=== PATIENT | male | born 1965 | race African-American/Black ===

== ENCOUNTER → 2016-05-23 | Outpatient (CLI) | payer OTHER ==
[2016-05-23 08:07] LABS: Basophils % (A) 1 %; CH 29.1; Eosinophils # (A) 0.4 k/uL (0-0.7); Eosinophils % (A) 7 %; HCT 42.7 % (39.0-53.0); HDW 2.42; HGB 13.5 gm/dL (13.0-17.5); Luc % (Auto) 3; Lymphocytes % (A) 32 %; MCH 28.9 pg (25.0-35.0); MCHC 31.7 g/dL (31.0-37.0); MCV 91.4 fL (80.0-100.0); Mean Platelet Volume 6.2; Monocytes # (A) 0.4 k/uL (0-1.0); Monocytes % (A) 6 %; Neutrophils # (A) 3.2 k/uL (1.3-7.7); Neutrophils % (A) 51 %; RBC 4.67 m/uL (4.30-5.90); RDW 14.1 % (11.5-15.5); WBC 6.2 k/uL (3.8-10.6); WBC (Perox) 6.12
[2016-05-23 08:22] LABS: ALT 16 U/L (21-72); AST 27 U/L (17-59); Alkaline Phosphatase 61 U/L (38-126); Anion Gap 9 mmol/L; Blood Urea Nitrogen 11 mg/dL (9-20); Calcium 9.3 mg/dL (8.4-10.2); Carbon Dioxide 26 mmol/L (22-30); Chloride 109 mmol/L (98-107); Cholesterol 192 mg/dL (<200); Glucose 119 mg/dL (74-99); HDL Cholesterol 97 mg/dL (40-60); Non-African American GFR(MDRD) >60 (>60 ml/min/1.73 sqM); Potassium 4.1 mmol/L (3.5-5.1); Sodium 144 mmol/L (137-145); Total Bilirubin 0.5 mg/dL (0.2-1.3); Total Protein 7.4 g/dL (6.3-8.2); Triglycerides 96 mg/dL (<150)
[2016-05-23 12:01] LABS: Hemoglobin A1C 6.1 % (4.2-6.1)
== END | disposition home or self-care (01) ==
LOC: LABWHC1 07:34
PROVIDERS: ATTEND Nurse Practitioner Psychiatric/Mental Health
DX: F20.9 Schizophrenia, unspecified (principal)
CPT/HCPCS: 36415; 80053; 80061; 83036; 84439; 84443; 85025

== ENCOUNTER 2017-04-18 08:37 | Emergency (ER) | payer OTHER ==
[2017-04-18 08:42] VITALS: TEMP 98.9
[2017-04-18 09:13] LABS: Appearance,Urine Clear (Clear); Bacteria,Urine Rare /hpf; Bilirubin,Urine Negative (Negative); Blood,Urine Moderate (Negative); Color,Urine Yellow; Glucose,Urine (UA) 4+ (Negative); Ketones,Urine Negative (Negative); Leukocyte Esterase,Urine Negative (Negative); Mucus,Urine Many /hpf; Nitrite,Urine Negative (Negative); PH, Urine 5.5 (5.0-8.0); Protein,Urine Trace (Negative); RBC,Urine 130 /hpf (0-5); Specific Gravity,Urine 1.012 (1.001-1.035); Squamous Epithelial Cell,Urine 1 /hpf (0-4); Urobilinogen,Urine <2.0 mg/dL (<2.0); WBC,Urine 4 /hpf (0-5)
--- NOTE | 2017-04-18 09:14 | ED ---
Male Urogenital HPI - General Chief complaint: Urogenital Stated complaint: Urinating blood Time Seen by Provider: 04/18/17 08:50 Source: patient, RN notes reviewed, old records reviewed Mode of arrival: ambulatory Limitations: no limitations - History of Present Illness Initial comments: This patient is a 51-year-old male presents emergency department reports that he 's had blood in his urine for the past 2 months whenever he wakes up in the morning. He reports that his left testicle is painful. He states that he has had no fever or chills. Denies any back pain or changes in bowel habits. Patient's had no abdominal pain. Denies any previous surgeries or issues with his urinary tract.Patient denies any recent fever, chills, shortness of breath, chest pain, back pain, abdominal pain, nausea vomiting, numbness or tingling, dysuria constipation or diarrhea, headaches or visual changes, or any other current symptoms - Related Data Home Medications Medication Instructions Recorded Confirmed No Known Home Medications [No 04/18/17 04/18/17 Known Home Medications] Allergies Allergy/AdvReac Type Severity Reaction Status Date / Time No Known Allergies Allergy Verified 04/18/17 10:03 Review of Systems ROS Statement: Those systems with pertinent positive or pertinent negative responses have been documented in the HPI. ROS Other: All systems not noted in ROS Statement are negative. Past Medical History Past Medical History: No Reported History History of Any Multi-Drug Resistant Organisms: None Reported Past Surgical History: No Surgical Hx Reported Past Psychological History: Schizophrenia Smoking Status: Current every day smoker Past Alcohol Use History: None Reported Past Drug Use History: None Reported General Exam - General Exam Comments Initial Comments: Patient is a 31-year-old male presents emergency Department with left testicular pain. He appears in no acute distress. Limitations: no limitations General appearance: alert, in no apparent distress Head exam: Present: atraumatic, normocephalic, normal inspection Eye exam: Present: normal appearance, PERRL, EOMI. Absent: scleral icterus, conjunctival injection, periorbital swelling ENT exam: Present: normal exam, mucous membranes moist Neck exam: Present: normal inspection. Absent: tenderness, meningismus, lymphadenopathy Respiratory exam: Present: normal lung sounds bilaterally. Absent: respiratory distress, wheezes, rales, rhonchi, stridor Cardiovascular Exam: Present: regular rate, normal rhythm, normal heart sounds. Absent: systolic murmur, diastolic murmur, rubs, gallop, clicks GI/Abdominal exam: Present: soft, normal bowel sounds. Absent: distended, tenderness, guarding, rebound, rigid exam: Present: normal inspection, testicular tenderness (Left testicular tenderness), other (Hematuria.). Absent: urethral discharge, scrotal swelling, vertical testicular lie, circumcision Extremities exam: Present: normal inspection, full ROM, normal capillary refill. Absent: tenderness, pedal edema, joint swelling, calf tenderness Back exam: Present: normal inspection Neurological exam: Present: alert, oriented X3, CN II-XII intact Psychiatric exam: Present: normal affect, normal mood Skin exam: Present: warm, dry, intact, normal color. Absent: rash Course Vital Signs 04/18/17 04/18/17 04/18/17 08:38 11:09 11:31 Temperature 98.9 F Pulse Rate 106 H 86 88 Respiratory 18 18 20 Rate Blood Pressure 130/87 122/79 127/69 O2 Sat by Pulse 100 100 99 Oximetry 04/18/17 12:45 Temperature Pulse Rate 91 Respiratory 16 Rate Blood Pressure 114/71 O2 Sat by Pulse 98 Oximetry Medical Decision Making - Medical Decision Making 51 year old male with hematuria for 2 months, and left testicular tenderness. Patient has no abdominal, flank or pelvic pain, but is tender over left superior pole of testicle. He does have siginificant hematuria, and glucosuria. Patient was given US scrotum which shows a small cyst in left testicle. No significant findings and repeat in 6 months, patient informed of this. However given significant hematuria, I discussed with Dr. Ramos and suggest CT to rule out bladder and kidney pathology. At this time patient lab work was reviwed and normal. CT shows no renal, ureteral, or bladder abnormalities. I discussed the patient must follow up with urology for possible scope and further work up. Return parameters were discussed. Patient is a smoker and discussed increased risk for bladder cancer as well. - Lab Data Result diagrams: 04/18/17 11:05 04/18/17 11:05 Lab Results 04/18/17 04/18/17 04/18/17 Range/Units 08:55 11:05 11:05 WBC 12.7 H (3.8-10.6) k/uL RBC 4.66 (4.30-5.90) m/uL Hgb 12.9 L (13.0-17.5) gm/dL Hct 40.7 (39.0-53.0) % MCV 87.3 (80.0-100.0) fL MCH 27.7 (25.0-35.0) pg MCHC 31.7 (31.0-37.0) g/dL RDW 14.6 (11.5-15.5) % Plt Count 320 (150-450) k/uL Neutrophils % 80 % Lymphocytes % 12 % Monocytes % 5 % Eosinophils % 1 % Basophils % 0 % Neutrophils # 10.2 H (1.3-7.7) k/uL Lymphocytes # 1.5 (1.0-4.8) k/uL Monocytes # 0.6 (0-1.0) k/uL Eosinophils # 0.2 (0-0.7) k/uL Basophils # 0.1 (0-0.2) k/uL Sodium 143 (137-145) mmol/L Potassium 4.2 (3.5-5.1) mmol/L Chloride 105 (98-107) mmol/L Carbon Dioxide 30 (22-30) mmol/L Anion Gap 8 mmol/L BUN 8 L (9-20) mg/dL Creatinine 1.00 (0.66-1.25) mg/dL Est GFR (MDRD) Af Amer >60 (>60 ml/min/1.73 sqM) Est GFR (MDRD) Non-Af >60 (>60 ml/min/1.73 sqM) Glucose 158 H (74-99) mg/dL Calcium 9.3 (8.4-10.2) mg/dL Total Bilirubin 0.6 (0.2-1.3) mg/dL AST 14 L (17-59) U/L ALT 13 L (21-72) U/L Alkaline Phosphatase 58 (38-126) U/L Total Protein 6.7 (6.3-8.2) g/dL Albumin 3.6 (3.5-5.0) g/dL Amylase 55 (30-110) U/L Lipase 61 (23-300) U/L Urine Color Yellow Urine Appearance Clear (Clear) Urine pH 5.5 (5.0-8.0) Ur Specific [place] 1.012 (1.001-1.035) Urine Protein Trace H (Negative) Urine Glucose (UA) 4+ H (Negative) Urine Ketones Negative (Negative) Urine Blood Moderate H (Negative) Urine Nitrite Negative (Negative) Urine Bilirubin Negative (Negative) Urine Urobilinogen <2.0 (<2.0) mg/dL Ur Leukocyte Esterase Negative (Negative) Urine RBC 130 H (0-5) /hpf Urine WBC 4 (0-5) /hpf Ur Squamous Epith Cells 1 (0-4) /hpf Urine Bacteria Rare H (None) /hpf Urine Mucus Many H (None) /hpf - Radiology Data Radiology results: report reviewed Small lobulated cyst measuring 7 x 5 mm the left testicle is likely incidental or may represent a congenital cyst or spermatocele. 6 month follow-up ultrasound can be considered. CT shows No evidence of hydronephrosis, ureteral caluli or bladder caliculi. No acute intraabomdinal process. Colonic diverticulosis noted. Disposition Clinical Impression: Hematuria Disposition: HOME SELF-CARE Condition: Good Instructions: Hematuria (ED) Additional Instructions: Patient needs to call urology tomorrow morning for an appointment due to persistent hematuria. Return to the emergency department if any alarming signs or symptoms occur. Referrals: None,Stated [Primary Care Provider] - 1-2 days Stuart Jonas MD [STAFF PHYSICIAN] - 1-2 days Time of Disposition: 12:27
--- NOTE | 2017-04-18 10:18 | US ---
EXAMINATION TYPE: US scrotum with doppler. DATE OF EXAM: 04/18/2017 COMPARISON: NONE CLINICAL HISTORY: 51-year-old male Pain in left testicle Technique: Multiple sonographic images of the scrotum were obtained. Color Doppler and spectral wavef orm analysis of the testicular arteries and veins. FINDINGS: TESTICLES: Right Testicle: 4.4x 1.9 x 2.3cm, septated cyst vs two separate cysts measuring 0.5 x 0.3 x 0.7cm Left Testicle: 4.6 x 2.0 x3.0 cm with a nonspecific lobulated cyst measuring 7 x 5 x 3 mm. Otherwise, testicles show normal homogeneous appearance without hyperemia. Satisfactory arterial and venous flow on both sides. EPIDIDYMIS HEAD: Right Epididymis: 0.8 cm Left Epididymis: 0.8 cm Presence of hydroceles: no Presence of varicoceles: no IMPRESSION: 1. A small lobulated cyst measuring 7 x 5 mm in the left testicle is likely incidental and may repres ent a congenital cyst or spermatocele. Six-month follow-up ultrasound could be considered. 2. Otherwise, no specific abnormality seen.
[2017-04-18] MEDS ORDERED: RX INFO: IV CONTRAST WAS GIVEN 1 EACH MISC MISCELLANE PRN (10:49)
[2017-04-18] MEDS ORDERED: SODIUM CHLORIDE 0.9% 1,000 ML IV ONE (10:49)
[2017-04-18] MEDS ORDERED: SODIUM CHLORIDE 0.9% 1,000 ML IV SCH (11:00)
[2017-04-18 11:19] LABS: Basophils # (A) 0.1 k/uL (0-0.2); Basophils % (A) 0 %; Eosinophils # (A) 0.2 k/uL (0-0.7); Eosinophils % (A) 1 %; HCT 40.7 % (39.0-53.0); HGB 12.9 gm/dL (13.0-17.5); Lymphocytes # (A) 1.5 k/uL (1.0-4.8); Lymphocytes % (A) 12 %; MCH 27.7 pg (25.0-35.0); MCHC 31.7 g/dL (31.0-37.0); MCV 87.3 fL (80.0-100.0); Mean Platelet Volume 6.4; Monocytes # (A) 0.6 k/uL (0-1.0); Monocytes % (A) 5 %; Neutrophils # (A) 10.2 k/uL (1.3-7.7); Neutrophils % (A) 80 %; Platelet Count 320 k/uL (150-450); RBC 4.66 m/uL (4.30-5.90); RDW 14.6 % (11.5-15.5); WBC 12.7 k/uL (3.8-10.6)
[2017-04-18 11:44] LABS: ALT 13 U/L (21-72); AST 14 U/L (17-59); Albumin 3.6 g/dL (3.5-5.0); Alkaline Phosphatase 58 U/L (38-126); Amylase 55 U/L (30-110); Anion Gap 8 mmol/L; Blood Urea Nitrogen 8 mg/dL (9-20); Calcium 9.3 mg/dL (8.4-10.2); Carbon Dioxide 30 mmol/L (22-30); Chloride 105 mmol/L (98-107); Glucose 158 mg/dL (74-99); Lipase 61 U/L (23-300); Potassium 4.2 mmol/L (3.5-5.1); Sodium 143 mmol/L (137-145); Total Bilirubin 0.6 mg/dL (0.2-1.3); Total Protein 6.7 g/dL (6.3-8.2)
--- NOTE | 2017-04-18 12:10 | CT ---
EXAMINATION TYPE: CT abdomen pelvis w con DATE OF EXAM: 04/18/2017 COMPARISON: NONE HISTORY: Blood in urine, pain in lower pelvic pain CT DLP: 514.2 mGycm Automated exposure control for dose reduction was used. TECHNIQUE: Helical acquisition of images was performed from the lung bases through the pelvis. CONTRAST: Performed without Oral Contrast and with IV Contrast, patient injected with 100 mL of Omnipaque 300. FINDINGS: LUNG BASES: Bibasilar subsegmental atelectasis is present. LIVER/GB: No radiopaque calculi are seen within the gallbladder. The liver is grossly unremarkable. PANCREAS: No ductal dilatation. Pancreas is unremarkable. SPLEEN: No significant abnormality is seen. Small splenules are noted inferior to the curyung spleen. ADRENALS: No significant abnormality is seen. KIDNEYS: No hydronephrosis or gross evidence of nephrolithiasis is seen. No ureteral calculi are pres ent. FREE AIR: No free air is visualized. ADENOPATHY: No greater than 1 cm short axis with nodes are seen within the abdomen or pelvis. REPRODUCTIVE ORGANS: No significant abnormality is seen URINARY BLADDER: Small urachal remnant is incidentally identified. The bladder is incompletely diste nded and therefore incompletely evaluated however there is no evidence of focal bladder wall thickeni ng or calculus. OSSEOUS STRUCTURES: Minimal multilevel degenerative changes of the lumbosacral spine and visualized thoracic and lumbar spine are noted. BOWEL: Sigmoid colon is redundant containing few sigmoid diverticula without pericolic fat stranding . Few diverticula are also seen within the transverse and descending colon without paracolonic fat st rain. Appendix is air-filled and within normal limits. OTHER: Small fat filled umbilical hernia is noted with a 1.6 cm neck. IMPRESSION: 1. NO EVIDENCE OF HYDRONEPHROSIS, GROSS EVIDENCE OF NEPHROLITHIASIS, URETERAL CALCULI, OR URINARY EMIL DDER CALCULI. 2. NO ACUTE INTRA-ABDOMINAL PROCESS. 3. COLONIC DIVERTICULOSIS WITHOUT EVIDENCE OF DIVERTICULITIS.
[2017-04-18 12:46] VITALS: BP 114/71; PULSE 91; RESP 16
== END 2017-04-18 12:46 | disposition home or self-care (01) ==
LOC: EC 08:37
DX: R31.9 Hematuria, unspecified (principal); K57.30 Diverticulosis of large intestine without perforation or abscess without bleeding; N44.2 Benign cyst of testis; N50.812 Left testicular pain; F17.200 Nicotine dependence, unspecified, uncomplicated
CPT/HCPCS: 36415; 80053; 82150; 83690; 85025; 81001; 93975; 76870; 74177; 99284; 96360; 96361; Q9967

== ENCOUNTER 2017-04-26 11:57 | Emergency (ER) | payer OTHER ==
[2017-04-26 12:01] VITALS: RESP 20
--- NOTE | 2017-04-26 12:35 | ED ---
General Adult HPI - General Chief complaint: Urogenital Stated complaint: Urinating blood Time Seen by Provider: 04/26/17 12:15 Source: patient, RN notes reviewed, Caregiver Mode of arrival: ambulatory Limitations: no limitations - History of Present Illness Initial comments: Patient is a pleasant 51-year-old male presenting to the emergency department with caregiver for hematuria. Patient states it usually happens in the morning. Caregiver states patient was just evaluated for this one week ago. Patient did have some complaints of testicular discomfort earlier however that has resolved. No abdominal pain. No fevers. Patient does state that his left ankle feels somewhat swollen and does hurt to walk on it. Patient does not recall any injury. - Related Data Home Medications Medication Instructions Recorded Confirmed Haloperidol Decanoate [Haldol D] 150 mg IM Q28D 04/26/17 04/26/17 Vivitrol Injection 380 mg IM Q28D 04/26/17 04/26/17 Allergies Allergy/AdvReac Type Severity Reaction Status Date / Time No Known Allergies Allergy Verified 04/26/17 12:30 Review of Systems ROS Statement: Those systems with pertinent positive or pertinent negative responses have been documented in the HPI. ROS Other: All systems not noted in ROS Statement are negative. Constitutional: Denies: fever Eyes: Denies: eye pain ENT: Denies: ear pain Respiratory: Denies: cough, dyspnea Cardiovascular: Denies: chest pain Endocrine: Denies: fatigue Gastrointestinal: Denies: abdominal pain Genitourinary: Reports: hematuria. Denies: dysuria Musculoskeletal: Denies: back pain Skin: Denies: rash Neurological: Denies: headache, weakness Past Medical History Past Medical History: No Reported History History of Any Multi-Drug Resistant Organisms: None Reported Past Surgical History: No Surgical Hx Reported Past Psychological History: Schizophrenia Smoking Status: Current every day smoker Past Alcohol Use History: None Reported Past Drug Use History: None Reported General Exam Limitations: no limitations General appearance: alert, in no apparent distress Head exam: Present: atraumatic Eye exam: Present: normal appearance, PERRL ENT exam: Present: normal oropharynx Neck exam: Present: normal inspection Respiratory exam: Present: normal lung sounds bilaterally Cardiovascular Exam: Present: regular rate, normal rhythm GI/Abdominal exam: Present: soft. Absent: distended, tenderness exam: Present: normal inspection. Absent: testicular tenderness, scrotal swelling Extremities exam: Present: tenderness (Mild tenderness left ankle without significant edema.). Absent: calf tenderness Neurological exam: Present: alert Psychiatric exam: Present: normal affect, normal mood Skin exam: Present: normal color Course Vital Signs 04/26/17 11:59 Temperature 98.1 F Pulse Rate 102 H Respiratory 20 Rate Blood Pressure 154/115 O2 Sat by Pulse 99 Oximetry Medical Decision Making - Medical Decision Making Patient reevaluated and resting comfortably in bed. Patient is symptom-free. Patient does have some hematuria. I do question a small calculi and KUB was could represent possible kidney stone versus fecalith. Tearer is updated regarding this. Patient is advised to follow-up with neurology for further evaluation and to return for fever or worsening symptoms or pain. - Lab Data Lab Results 04/26/17 Range/Units 12:40 Urine Color Yellow Urine Appearance Clear (Clear) Urine pH 5.5 (5.0-8.0) Ur Specific [place] 1.018 (1.001-1.035) Urine Protein Negative (Negative) Urine Glucose (UA) Negative (Negative) Urine Ketones Negative (Negative) Urine Blood Moderate H (Negative) Urine Nitrite Negative (Negative) Urine Bilirubin Negative (Negative) Urine Urobilinogen <2.0 (<2.0) mg/dL Ur Leukocyte Esterase Negative (Negative) Urine RBC 59 H (0-5) /hpf Urine WBC 2 (0-5) /hpf Ur Squamous Epith Cells <1 (0-4) /hpf Urine Bacteria Rare H (None) /hpf Urine Mucus Rare H (None) /hpf - Radiology Data Radiology results: image reviewed (KUB shows some mildly dilated loops of small bowel. Left ankle x-ray shows no acute process.) Disposition Clinical Impression: Hematuria Disposition: HOME SELF-CARE Condition: Stable Instructions: Hematuria (ED) Additional Instructions: Please follow-up with urology in the next few days for recheck. Patient will need further evaluation for blood in the urine. Please follow-up also with primary care physician. Return for increased pain, fevers, worsening symptoms or other concerns. Referrals: Marleny Smith MD [STAFF PHYSICIAN] - 1-2 days Jonathan Lisa MD [STAFF PHYSICIAN] - 1-2 days Time of Disposition: 13:25
[2017-04-26 12:56] LABS: Appearance,Urine Clear (Clear); Bacteria,Urine Rare /hpf; Bilirubin,Urine Negative (Negative); Blood,Urine Moderate (Negative); Color,Urine Yellow; Glucose,Urine (UA) Negative (Negative); Ketones,Urine Negative (Negative); Leukocyte Esterase,Urine Negative (Negative); Mucus,Urine Rare /hpf; PH, Urine 5.5 (5.0-8.0); Protein,Urine Negative (Negative); RBC,Urine 59 /hpf (0-5); Specific Gravity,Urine 1.018 (1.001-1.035); Squamous Epithelial Cell,Urine <1 /hpf (0-4); Urobilinogen,Urine <2.0 mg/dL (<2.0); WBC,Urine 2 /hpf (0-5)
--- NOTE | 2017-04-26 13:18 | XR ---
EXAMINATION TYPE: XR abdomen 1V DATE OF EXAM: 04/26/2017 12:53 PM CLINICAL HISTORY: Hematemesis TECHNIQUE: Single upright image of the abdomen is obtained. COMPARISON: 04/18/2017. FINDINGS: Scattered gas is seen in non-distended small bowel loops. Few mildly enlarged bowel loops a re seen in the low pelvis measuring 4.5 cm. Gas and fecal material is seen in non-distended colon. Mo derate amount retained colonic stool is seen within the right hemicolon and transverse colon. There i s no pneumoperitoneum or abnormal calcification appreciated. The lung bases are clear and the osseous structures are intact with mild degenerative changes of the femoral acetabular joint. IMPRESSION: Few mildly dilated loops of small bowel suggestive of ileus and moderate amount retained colonic stool.
--- NOTE | 2017-04-26 13:24 | XR ---
Left ankle HISTORY: Left ankle pain and swelling 3 views of the left ankle No comparisons There is soft tissue swelling. Bone mineralization, joint spaces and alignment are maintained. Calcif ication present at the insertion of the Achilles tendon. Some spurring present at the intertarsal bjorn nts. IMPRESSION: No fracture or dislocation. Mild osteoarthritic change is suspected. Consider ankle MRI.
[2017-04-26 13:36] VITALS: BP 150/98; PULSE 100; TEMP 98
== END 2017-04-26 13:35 | disposition home or self-care (01) ==
LOC: EC 11:57
DX: R31.9 Hematuria, unspecified (principal); N50.819 Testicular pain, unspecified; F20.9 Schizophrenia, unspecified; F17.200 Nicotine dependence, unspecified, uncomplicated; Z79.899 Other long term (current) drug therapy
CPT/HCPCS: 74018; 81001; 87086; 99283

== ENCOUNTER 2018-08-23 14:22 | Emergency (ER) | payer OTHER ==
[2018-08-23 14:29] VITALS: TEMP 98.5
[2018-08-23] MEDS ORDERED: SODIUM CHLORIDE 0.9% 1,000 ML IV ONE (14:57)
[2018-08-23] MEDS ORDERED: PANTOPRAZOLE 40 MG/10 ML VIAL IVP STA (15:45)
[2018-08-23] MEDS ORDERED: SODIUM CHLORIDE 0.9% 1,000 ML with POTASSIUM CHLORIDE 20 MEQ, MVI, ADULT NO.4 WITH VIT ... IV ONE ×5 (15:45)
[2018-08-23 15:53] LABS: Basophils % (A) 1 %; Eosinophils # (A) 0.1 k/uL (0-0.7); Eosinophils % (A) 2 %; HCT 40.9 % (39.0-53.0); HGB 12.8 gm/dL (13.0-17.5); Lymphocytes # (A) 1.7 k/uL (1.0-4.8); Lymphocytes % (A) 32 %; MCH 27.9 pg (25.0-35.0); MCHC 31.2 g/dL (31.0-37.0); MCV 89.3 fL (80.0-100.0); Mean Platelet Volume 6.9; Monocytes # (A) 0.3 k/uL (0-1.0); Monocytes % (A) 5 %; Neutrophils # (A) 3.1 k/uL (1.3-7.7); Neutrophils % (A) 57 %; Platelet Count 183 k/uL (150-450); RBC 4.58 m/uL (4.30-5.90); RDW 15.2 % (11.5-15.5); WBC 5.4 k/uL (3.8-10.6)
[2018-08-23 15:58] LABS: ALT 12 U/L (21-72); AST 19 U/L (17-59); African American GFR (CKD) >90 (>60 ml/min/1.73 sqM); Alkaline Phosphatase 49 U/L (38-126); Anion Gap 8 mmol/L; Blood Urea Nitrogen 10 mg/dL (9-20); Carbon Dioxide 25 mmol/L (22-30); Chloride 109 mmol/L (98-107); Glucose 88 mg/dL (74-99); Potassium 3.7 mmol/L (3.5-5.1); Sodium 142 mmol/L (137-145); Total Bilirubin 0.8 mg/dL (0.2-1.3); Total Protein 6.7 g/dL (6.3-8.2)
[2018-08-23 16:06] LABS: Partial Thromboplastin Time 24.5 sec (22.0-30.0); Prothrombin Time 10.8 sec (9.0-12.0)
[2018-08-23 16:09] LABS: Alcohol 237 mg/dL
--- NOTE | 2018-08-23 16:13 | ED ---
Fall HPI <Champ Holley - Last Filed: 08/23/18 20:56> - General Source: EMS, RN notes reviewed, old records reviewed Mode of arrival: EMS <Mery Syed - Last Filed: 08/23/18 20:58> <Yoav Gordillo - Last Filed: 08/23/18 23:48> - General Chief Complaint: Fall Stated Complaint: Fall Time Seen by Provider: 08/23/18 14:30 - History of Present Illness Initial Comments: Patient is a 52-year-old male history of alcohol disorder, as well and speech delay, presents today after a fall and concern for intoxication. According to EMS they were called to [facility] due to patient being unruly. Patient then left to the senior living. Palate Patient trying to get on a bus, and fell backward possibly hitting his head. EMS was not called second time and palpation in for evaluation. Patient states he was drinking today. He reports he has pain all over. He denies loss of consciousness. (Mery Syed) - Related Data Home Medications Medication Instructions Recorded Confirmed No Known Home Medications 08/23/18 08/23/18 Allergies Allergy/AdvReac Type Severity Reaction Status Date / Time No Known Allergies Allergy Verified 08/23/18 14:55 Review of Systems ROS Other: All systems not noted in ROS Statement are negative. <Champ Holley - Last Filed: 08/23/18 20:56> ROS Other: All systems not noted in ROS Statement are negative. <Mery Syed - Last Filed: 08/23/18 20:58> ROS Other: All systems not noted in ROS Statement are negative. <Yoav Gordillo - Last Filed: 08/23/18 23:48> ROS Statement: Those systems with pertinent positive or pertinent negative responses have been documented in the HPI. Past Medical History Past Medical History: No Reported History History of Any Multi-Drug Resistant Organisms: None Reported Past Surgical History: No Surgical Hx Reported Past Psychological History: Schizophrenia Smoking Status: Current every day smoker Past Alcohol Use History: None Reported Past Drug Use History: None Reported <Mery Syed - Last Filed: 08/23/18 20:58> General Exam Limitations: altered mental status General appearance: alert, appears intoxicated (Unintelligible speech.), other (Vila is speaking and slurred sentences, saying swear words. Appears to be responding to internal stimuli.) Head exam: Present: atraumatic, normocephalic, normal inspection Eye exam: Present: normal appearance, PERRL, EOMI. Absent: scleral icterus, conjunctival injection, periorbital swelling ENT exam: Present: normal exam, mucous membranes moist Neck exam: Present: normal inspection. Absent: tenderness, meningismus, lymphadenopathy Respiratory exam: Present: normal lung sounds bilaterally. Absent: respiratory distress, wheezes, rales, rhonchi, stridor Cardiovascular Exam: Present: regular rate, normal rhythm, normal heart sounds. Absent: systolic murmur, diastolic murmur, rubs, gallop, clicks GI/Abdominal exam: Present: soft, normal bowel sounds. Absent: distended, tend erness, guarding, rebound, rigid Extremities exam: Present: normal inspection, full ROM, normal capillary refill. Absent: tenderness, pedal edema, joint swelling, calf tenderness Back exam: Present: normal inspection Neurological exam: Present: alert, oriented X3, CN II-XII intact <Mery Syed - Last Filed: 08/23/18 20:58> - General Exam Comments Initial Comments: Intoxicated 52-year-old male. (Mery Syed) Course <Champ Holley - Last Filed: 08/23/18 20:56> Vital Signs 08/23/18 08/23/18 14:24 17:18 Temperature 98.5 F Pulse Rate 82 77 Respiratory 18 18 Rate Blood Pressure 125/90 130/103 O2 Sat by Pulse 97 98 Oximetry - Reevaluation(s) Reevaluation #1: 08/23/18 19:24 Patient became verbally and physically threatening and did require some IV sedation. He still remains intoxicated at this time. (Champ Holley) Reevaluation #2: 08/23/18 20:56 Patient is resting comfortably since medication was given. Patient's care will be endorsed to Dr. Gordillo at our shift change (Champ Holley) Medical Decision Making - Lab Data Result diagrams: 08/23/18 15:22 08/23/18 15:22 <Champ Holley - Last Filed: 08/23/18 20:56> - Lab Data Result diagrams: 08/23/18 15:22 08/23/18 15:22 - Radiology Data Radiology results: report reviewed <Mery Syed - Last Filed: 08/23/18 20:58> - Lab Data Result diagrams: 08/23/18 15:22 08/23/18 15:22 <Yoav Gordillo - Last Filed: 08/23/18 23:48> - Medical Decision Making Is a 32-year-old male with history of schizophrenia and alcohol use disorder. He presents today after a fall getting out of bus. He may have hit his head. Patient appears intoxicated, slurred speech is noted. They also report he has a history of speech impediment states that this is unchanged. Patient had a CT of his brain which is negative for any acute process. Lab work was reviewed and unremarkable. Alcohol level is 237. Case discussed with Dr. Holley who will reevaluate the Patient needs more sober determined Patient will need to be evaluated by psychiatric services. (Mery Syed) - Lab Data Lab Results 08/23/18 08/23/18 08/23/18 Range/Units 15:22 15:22 15:22 WBC 5.4 (3.8-10.6) k/uL RBC 4.58 (4.30-5.90) m/uL Hgb 12.8 L (13.0-17.5) gm/dL Hct 40.9 (39.0-53.0) % MCV 89.3 (80.0-100.0) fL MCH 27.9 (25.0-35.0) pg MCHC 31.2 (31.0-37.0) g/dL RDW 15.2 (11.5-15.5) % Plt Count 183 (150-450) k/uL Neutrophils % 57 % Lymphocytes % 32 % Monocytes % 5 % Eosinophils % 2 % Basophils % 1 % Neutrophils # 3.1 (1.3-7.7) k/uL Lymphocytes # 1.7 (1.0-4.8) k/uL Monocytes # 0.3 (0-1.0) k/uL Eosinophils # 0.1 (0-0.7) k/uL Basophils # 0.0 (0-0.2) k/uL PT 10.8 (9.0-12.0) sec INR 1.0 (<1.2) APTT 24.5 (22.0-30.0) sec Sodium 142 (137-145) mmol/L Potassium 3.7 (3.5-5.1) mmol/L Chloride 109 H (98-107) mmol/L Carbon Dioxide 25 (22-30) mmol/L Anion Gap 8 mmol/L BUN 10 (9-20) mg/dL Creatinine 0.99 (0.66-1.25) mg/dL Est GFR (CKD-EPI)AfAm >90 (>60 ml/min/1.73 sqM) Est GFR (CKD-EPI)NonAf 87 (>60 ml/min/1.73 sqM) Glucose 88 (74-99) mg/dL Calcium 9.0 (8.4-10.2) mg/dL Total Bilirubin 0.8 (0.2-1.3) mg/dL AST 19 (17-59) U/L ALT 12 L (21-72) U/L Alkaline Phosphatase 49 (38-126) U/L Troponin I (0.000-0.034) ng/mL Total Protein 6.7 (6.3-8.2) g/dL Albumin 4.0 (3.5-5.0) g/dL Urine Opiates Screen (NotDetected) Ur Oxycodone Screen (NotDetected) Urine Methadone Screen (NotDetected) Ur Propoxyphene Screen (NotDetected) Ur Barbiturates Screen (NotDetected) U Tricyclic Antidepress (NotDetected) Ur Phencyclidine Scrn (NotDetected) Ur Amphetamines Screen (NotDetected) U Methamphetamines Scrn (NotDetected) U Benzodiazepines Scrn (NotDetected) Urine Cocaine Screen (NotDetected) U Marijuana (THC) Screen (NotDetected) Serum Alcohol 237 H* mg/dL 08/23/18 08/23/18 Range/Units 15:22 16:08 WBC (3.8-10.6) k/uL RBC (4.30-5.90) m/uL Hgb (13.0-17.5) gm/dL Hct (39.0-53.0) % MCV (80.0-100.0) fL MCH (25.0-35.0) pg MCHC (31.0-37.0) g/dL RDW (11.5-15.5) % Plt Count (150-450) k/uL Neutrophils % % Lymphocytes % % Monocytes % % Eosinophils % % Basophils % % Neutrophils # (1.3-7.7) k/uL Lymphocytes # (1.0-4.8) k/uL Monocytes # (0-1.0) k/uL Eosinophils # (0-0.7) k/uL Basophils # (0-0.2) k/uL PT (9.0-12.0) sec INR (<1.2) APTT (22.0-30.0) sec Sodium (137-145) mmol/L Potassium (3.5-5.1) mmol/L Chloride (98-107) mmol/L Carbon Dioxide (22-30) mmol/L Anion Gap mmol/L BUN (9-20) mg/dL Creatinine (0.66-1.25) mg/dL Est GFR (CKD-EPI)AfAm (>60 ml/min/1.73 sqM) Est GFR (CKD-EPI)NonAf (>60 ml/min/1.73 sqM) Glucose (74-99) mg/dL Calcium (8.4-10.2) mg/dL Total Bilirubin (0.2-1.3) mg/dL AST (17-59) U/L ALT (21-72) U/L Alkaline Phosphatase (38-126) U/L Troponin I <0.012 (0.000-0.034) ng/mL Total Protein (6.3-8.2) g/dL Albumin (3.5-5.0) g/dL Urine Opiates Screen Not Detected (NotDetected) Ur Oxycodone Screen Not Detected (NotDetected) Urine Methadone Screen Not Detected (NotDetected) Ur Propoxyphene Screen Not Detected (NotDetected) Ur Barbiturates Screen Not Detected (NotDetected) U Tricyclic Antidepress Not Detected (NotDetected) Ur Phencyclidine Scrn Not Detected (NotDetected) Ur Amphetamines Screen Not Detected (NotDetected) U Methamphetamines Scrn Not Detected (NotDetected) U Benzodiazepines Scrn Not Detected (NotDetected) Urine Cocaine Screen Detected H (NotDetected) U Marijuana (THC) Screen Not Detected (NotDetected) Serum Alcohol mg/dL - Radiology Data CT shows cerebral atrophy. No acute intracranial abnormality. Splondylotic changes in cervical spine. (Mery Syed) Disposition <Champ Holley - Last Filed: 08/23/18 20:56> Is patient prescribed a controlled substance at d/c from ED?: No Time of Disposition: 17:48 <Mery Syed - Last Filed: 08/23/18 20:58> Is patient prescribed a controlled substance at d/c from ED?: No <Yoav Gordillo - Last Filed: 08/23/18 23:48> Clinical Impression: Alcohol abuse, Intoxication Disposition: HOME SELF-CARE Condition: Good Instructions (If sedation given, give patient instructions): Alcohol Intoxication (ED) Referrals: Marleny Smith MD [Primary Care Provider] - 1-2 days
[2018-08-23 17:00] LABS: Amphetamine Screen,Urine Not Detected (NotDetected); Barbiturate Screen,Urine Not Detected (NotDetected); Benzodiazepines Screen,Urine Not Detected (NotDetected); Cocaine Screen,Urine Detected (NotDetected); Methadone Screen, Urine Not Detected (NotDetected); Opiate Screen,Urine Not Detected (NotDetected); Oxycodone Screen, Urine Not Detected (NotDetected); Phencyclidine Screen,Urine Not Detected (NotDetected); Tricyclic Antidepressant,Urine Not Detected (NotDetected); Urn Cannabinoid Scrn Not Detected (NotDetected)
--- NOTE | 2018-08-23 17:02 | XR ---
EXAMINATION TYPE: XR chest 2V DATE OF EXAM: 08/23/2018 COMPARISON: 01/11/2013 HISTORY: Fall. Pain. TECHNIQUE: Frontal and lateral views of the chest are obtained. FINDINGS: Heart and mediastinum are normal. Lungs are clear. Diaphragm is normal. Bony thorax appear s normal. IMPRESSION: Normal chest. No change.
--- NOTE | 2018-08-23 17:11 | CT ---
EXAMINATION TYPE: CT brain [place] DATE OF EXAM: 08/23/2018 COMPARISON: None HISTORY: ETOH, fall, slurred speech. Headache. Neck pain CT DLP: 2384 mGycm Automated exposure control for dose reduction was used. TECHNIQUE: CT scan of the head and cervical spine are performed without contrast. FINDINGS: There is cerebral cortical atrophy. There is no mass effect nor midline shift. There is n o sign of intracranial hemorrhage. There is some mucosal thickening in the ethmoid air cells. Calvari um is intact. Cervical vertebra have normal alignment. There is degenerative disc space narrowing and spur formatio n from C3 to C7. Facet joints are intact. The skull base is intact. IMPRESSION: Cerebral atrophy. No acute intracranial abnormality. Spondylotic changes in the cervical spine. No fr acture.
[2018-08-23] MEDS ORDERED: LORazepam 2 MG/ML INJ IV STA ×2 (19:21→19:22)
[2018-08-24 02:04] VITALS: BP 135/94; PULSE 70; RESP 16
== END 2018-08-24 02:04 | disposition home or self-care (01) ==
LOC: EC 14:22
DX: F10.129 Alcohol abuse with intoxication, unspecified (principal); R47.81 Slurred speech; F17.200 Nicotine dependence, unspecified, uncomplicated
CPT/HCPCS: 36415; 93005; 80053; 84484; 85025; 85610; 85730; 80306; 71046; 72125; 70450; 99285; 96365; 96366 ×8; 96375 ×2; 96361; G0480; J2060; J3411; J3480; C9113; 80320

== ENCOUNTER 2018-08-29 14:24 | Inpatient (IN) | payer MEDICAID, OTHER ==
[2018-08-29] MEDS ORDERED: diphenhydrAMINE 50 MG/ML 1 ML VIAL IM STA (14:37)
[2018-08-29] MEDS ORDERED: LORazepam 2 MG/ML INJ IM STA (14:37)
--- NOTE | 2018-08-29 15:09 | ED ---
Psych HPI - General Source: EMS, RN notes reviewed, old records reviewed Mode of arrival: EMS - History of Present Illness MD Complaint: altered mental status -: unknown Associated Psychiatric Symptoms: homicidal ideation, racing thoughts, auditory hallucinations, visual hallucinations, delusions Quality: getting worse Improves With: none Worsens With: none Context: not taking psychiatric medications Associated Symptoms: denies other symptoms Treatments Prior to Arrival: placed on mental health hold <Otto Meléndez - Last Filed: 08/29/18 16:07> <Champ Holley - Last Filed: 08/29/18 19:20> - General Chief Complaint: Psychiatric Symptoms Stated Complaint: EPS eval Time Seen by Provider: 08/29/18 14:32 - History of Present Illness Initial Comments: This is a 52-year-old male the ER for evaluation presents today for evaluation regards to psychiatric illness, presented cor pickup order for evaluation regarding schizophrenia and psychosis (Otto Meléndez) - Related Data Home Medications Medication Instructions Recorded Confirmed Haloperidol Decanoate [Haldol D] 150 mg IM QMONTH 08/29/18 08/29/18 Allergies Allergy/AdvReac Type Severity Reaction Status Date / Time No Known Allergies Allergy Verified 08/29/18 14:38 Review of Systems ROS Other: All systems not noted in ROS Statement are negative. <Otto Meléndez - Last Filed: 08/29/18 16:07> ROS Other: All systems not noted in ROS Statement are negative. <Champ Holley - Last Filed: 08/29/18 19:20> ROS Statement: Those systems with pertinent positive or pertinent negative responses have been documented in the HPI. Past Medical History Past Medical History: No Reported History History of Any Multi-Drug Resistant Organisms: None Reported Past Surgical History: No Surgical Hx Reported Past Psychological History: Schizophrenia Smoking Status: Current every day smoker Past Alcohol Use History: None Reported Past Drug Use History: None Reported <Otto Meléndez - Last Filed: 08/29/18 16:07> General Exam Limitations: no limitations General appearance: alert, in no apparent distress Head exam: Present: atraumatic, normocephalic, normal inspection Eye exam: Present: normal appearance, PERRL, EOMI. Absent: scleral icterus, conjunctival injection, periorbital swelling ENT exam: Present: normal exam, mucous membranes moist Neck exam: Present: normal inspection. Absent: tenderness, meningismus, lymphadenopathy Respiratory exam: Present: normal lung sounds bilaterally. Absent: respiratory distress, wheezes, rales, rhonchi, stridor Cardiovascular Exam: Present: regular rate, normal rhythm, normal heart sounds. Absent: systolic murmur, diastolic murmur, rubs, gallop, clicks GI/Abdominal exam: Present: soft, normal bowel sounds. Absent: distended, tenderness, guarding, rebound, rigid Extremities exam: Present: normal inspection, full ROM, normal capillary refill. Absent: tenderness, pedal edema, joint swelling, calf tenderness Back exam: Present: normal inspection Neurological exam: Present: alert, oriented X3, CN II-XII intact Psychiatric exam: Present: normal affect, normal mood Skin exam: Present: warm, dry, intact, normal color. Absent: rash <Otto Meléndez - Last Filed: 08/29/18 16:07> Course <Otto Meléndez - Last Filed: 08/29/18 16:07> Vital Signs 08/29/18 08/29/18 14:26 18:36 Temperature 97.5 F L 98 F Pulse Rate 87 61 Respiratory 18 19 Rate Blood Pressure 167/120 117/76 O2 Sat by Pulse 99 100 Oximetry - Reevaluation(s) Reevaluation #1: 08/29/18 16:08 Medically clear for psychiatric evaluation (Otto Meléndez) Reevaluation #2: 08/29/18 16:08 On arrival to ER patient was very combative requiring chemical and physical restraints (Otto Meléndez) Procedures - Restraint - Face to Face Restraint Occurrence 1 Patient's Immediate Situation: Endangers self safety, Endangers others' safety, Endangers staff safety Patient's Reaction to the Intervention: Uncooperative, Angry, Hostile, Anxious Patient's Medical & Behavioral Condition: Awake, Agitated, Paranoid Need to Continue or Terminate Restraint or Seclusion: Continue Face to Face Eval of Restraint Date: 08/29/18 Face to Face Eval of Restraint Time: 14:50 <Otto Meléndez - Last Filed: 08/29/18 16:07> Medical Decision Making - Lab Data Result diagrams: 08/29/18 15:06 08/29/18 15:06 <Champ Holley - Last Filed: 08/29/18 19:20> - Medical Decision Making Patient was endorsed me by Dr. Meléndez at shift change pending psychiatric evaluation the patient was evaluated and will be admitted for inpatient treatment of schizophrenia. I did review the pickup order and petitioned I did fill out a clinical certification. (Champ Holley) - Lab Data Lab Results 08/29/18 08/29/18 08/29/18 Range/Units 15:06 15:06 15:06 WBC 3.7 L (3.8-10.6) k/uL RBC 4.52 (4.30-5.90) m/uL Hgb 13.0 (13.0-17.5) gm/dL Hct 40.8 (39.0-53.0) % MCV 90.3 (80.0-100.0) fL MCH 28.9 (25.0-35.0) pg MCHC 31.9 (31.0-37.0) g/dL RDW 16.7 H (11.5-15.5) % Plt Count 186 (150-450) k/uL Neutrophils % 60 % Lymphocytes % 29 % Monocytes % 5 % Eosinophils % 4 % Basophils % 1 % Neutrophils # 2.2 (1.3-7.7) k/uL Lymphocytes # 1.1 (1.0-4.8) k/uL Monocytes # 0.2 (0-1.0) k/uL Eosinophils # 0.1 (0-0.7) k/uL Basophils # 0.0 (0-0.2) k/uL Anisocytosis Slight Sodium 139 (137-145) mmol/L Potassium 4.0 (3.5-5.1) mmol/L Chloride 105 (98-107) mmol/L Carbon Dioxide 30 (22-30) mmol/L Anion Gap 4 mmol/L BUN 9 (9-20) mg/dL Creatinine 0.85 (0.66-1.25) mg/dL Est GFR (CKD-EPI)AfAm >90 (>60 ml/min/1.73 sqM) Est GFR (CKD-EPI)NonAf >90 (>60 ml/min/1.73 sqM) Glucose 118 H (74-99) mg/dL Calcium 9.3 (8.4-10.2) mg/dL Total Bilirubin 1.2 (0.2-1.3) mg/dL AST 26 (17-59) U/L ALT 18 L (21-72) U/L Alkaline Phosphatase 42 (38-126) U/L Total Protein 6.5 (6.3-8.2) g/dL Albumin 3.9 (3.5-5.0) g/dL Urine Opiates Screen Not Detected (NotDetected) Ur Oxycodone Screen Not Detected (NotDetected) Urine Methadone Screen Not Detected (NotDetected) Ur Propoxyphene Screen Not Detected (NotDetected) Ur Barbiturates Screen Not Detected (NotDetected) U Tricyclic Antidepress Not Detected (NotDetected) Ur Phencyclidine Scrn Not Detected (NotDetected) Ur Amphetamines Screen Not Detected (NotDetected) U Methamphetamines Scrn Not Detected (NotDetected) U Benzodiazepines Scrn Not Detected (NotDetected) Urine Cocaine Screen Not Detected (NotDetected) U Marijuana (THC) Screen Not Detected (NotDetected) Serum Alcohol <10 mg/dL Disposition <Otto Meléndez - Last Filed: 08/29/18 16:07> <Champ Holley - Last Filed: 08/29/18 19:20> Clinical Impression: Schizophrenia, acute Disposition: TRANSFER TO PSYCH HOSP/UNIT Condition: Stable
[2018-08-29 16:24] LABS: Anisocytosis Slight; Basophils % (A) 1 %; Eosinophils # (A) 0.1 k/uL (0-0.7); Eosinophils % (A) 4 %; HCT 40.8 % (39.0-53.0); Lymphocytes # (A) 1.1 k/uL (1.0-4.8); Lymphocytes % (A) 29 %; MCH 28.9 pg (25.0-35.0); MCHC 31.9 g/dL (31.0-37.0); MCV 90.3 fL (80.0-100.0); Mean Platelet Volume 7.6; Monocytes # (A) 0.2 k/uL (0-1.0); Monocytes % (A) 5 %; Neutrophils # (A) 2.2 k/uL (1.3-7.7); Neutrophils % (A) 60 %; Platelet Count 186 k/uL (150-450); RBC 4.52 m/uL (4.30-5.90); RDW 16.7 % (11.5-15.5); WBC 3.7 k/uL (3.8-10.6)
[2018-08-29 16:34] LABS: ALT 18 U/L (21-72); AST 26 U/L (17-59); African American GFR (CKD) >90 (>60 ml/min/1.73 sqM); Albumin 3.9 g/dL (3.5-5.0); Alcohol <10 mg/dL; Alkaline Phosphatase 42 U/L (38-126); Anion Gap 4 mmol/L; Blood Urea Nitrogen 9 mg/dL (9-20); Calcium 9.3 mg/dL (8.4-10.2); Carbon Dioxide 30 mmol/L (22-30); Chloride 105 mmol/L (98-107); Glucose 118 mg/dL (74-99); Sodium 139 mmol/L (137-145); Total Bilirubin 1.2 mg/dL (0.2-1.3); Total Protein 6.5 g/dL (6.3-8.2)
[2018-08-29 16:37] LABS: Amphetamine Screen,Urine Not Detected (NotDetected); Barbiturate Screen,Urine Not Detected (NotDetected); Benzodiazepines Screen,Urine Not Detected (NotDetected); Cocaine Screen,Urine Not Detected (NotDetected); Methadone Screen, Urine Not Detected (NotDetected); Opiate Screen,Urine Not Detected (NotDetected); Oxycodone Screen, Urine Not Detected (NotDetected); Phencyclidine Screen,Urine Not Detected (NotDetected); Tricyclic Antidepressant,Urine Not Detected (NotDetected); Urn Cannabinoid Scrn Not Detected (NotDetected)
[2018-08-29] MEDS ORDERED: ACETAMINOPHEN TAB 325 MG TAB PO PRN (18:35)
[2018-08-29] MEDS ORDERED: LORazepam 1 MG TAB PO PRN (18:35)
[2018-08-29] MEDS ORDERED: MAG HYDROX/AL HYDROX/SIMETH 30 ML CUP PO PRN (18:35)
[2018-08-29] MEDS ORDERED: MAGNESIUM HYDROXIDE 2,400 MG/10 ML CUP PO PRN (18:35)
[2018-08-29] MEDS ORDERED: ZIPRASIDONE 20 MG VIAL IM PRN (18:35)
[2018-08-29 19:46] LABS: Appearance,Urine Clear (Clear); Bilirubin,Urine Negative (Negative); Blood,Urine Negative (Negative); Color,Urine Yellow; Glucose,Urine (UA) Negative (Negative); Ketones,Urine Negative (Negative); Leukocyte Esterase,Urine Negative (Negative); Nitrite,Urine Negative (Negative); PH, Urine 7.5 (5.0-8.0); Protein,Urine Negative (Negative); Specific Gravity,Urine 1.009 (1.001-1.035); Urobilinogen,Urine <2.0 mg/dL (<2.0)
[2018-08-30] MEDS: NICOTINE 14MG/24HR PATCH TRANSDERM SCH (08:09)
[2018-08-30] MEDS: THIAMINE 100 MG TAB PO SCH ×2 (12:23→15:14)
--- NOTE | 2018-08-30 12:49 | HP ---
DATE OF SERVICE: 08/30/2018 HISTORY AND PHYSICAL IDENTIFYING DATA: The patient is a 52-year-old male. He has been living at [facility]. He was admitted on a pick-up order for involuntary hospitalization. CHIEF COMPLAINT: The patient was hopeless. He threatened to harm himself and harm others. HISTORY PRESENTING ILLNESS: The patient has been diagnosed with schizophrenia. He was followed through [facility]. He [place] different [place]. He had a psychiatric evaluation at [facility] 03/24/2018. At that time, he was noted to have a hospitalization for extreme agitation, threatening others, hallucinations and paranoia. He has had a history of psychiatric difficulties going back to mid teens when he was noted to have hallucinations and paranoid delusions. The following is noted on his 2017 evaluation, "He is reported to struggle with disorganized thought, loose association, tangential thoughts, pressured speech, disconnect it seems, presents as preoccupied with relationship and sexual issues, varying affect labile mood, hearing voices, but typically does not express the content and mumbling to himself. In the past, when admitted to [facility], he was reported he struggled with irrational behavior, yelling and threatening. [place] [address] by himself. He is confused, labile mood. He was placed in four-point restraints due to threatening irrational behaviors." He was last seen at [facility], 02/15/2018, and had been followed by Miss Daniella KAMARA at that contact, it was noted that he was on Haldol Decanoate 150 mg IM every 4 weeks. He had been on Cogentin, though had stopped taking the medication because it made his mouth too dry. He did not report any EPS symptoms. His mood was even. He was reporting to function fairly well. He was reporting using alcohol and marijuana intermittently. He apparently has been followed since the February 15 appointment through [facility]. It is noted that he had ED visits in March for urinary complaints. He was also seen in the ED 08/23/2018 for a fall and concern for intoxication. He had been at [facility] and apparently had unruly behavior as his reason for coming to the ED. He was drinking on the . At the emergency department, his serum alcohol level was 237. The rest of his drug screen was negative. In regards to his current admission, patient was petition by a friend. Please see the legal documents for details. It was noted on the petition the following "While driving today. I seen sitting on the curb of [facility] and [place] waiting to get into the soup kitchen. stated to me that he did not care if he lived or . then said he was going to walk down the freeway and did not care what happened. further stated that he was going to "get that man" (would not identify the man or go into details) and throw him in the river. When I asked about seeking help, he refused to go to the hospital and "was not going to deal with the hospital or police." He also stated he did not want to go on any medications." When I talked to the patient today, he declined to provide any information. He said that he needed a vitamin. Relating to his alcohol use, he did not provide any details about his alcohol use other than acknowledging that he drinks apparently fairly regularly. He said he also smokes marijuana, though again did not provide details. When I reviewed information on the petition, the patient declined to say anything about what was documented. He said that his only reason for being in the hospital was to get on a vitamin and then to be discharged. It is noteworthy that in the emergency room, his urine drug screen was negative and blood alcohol level was 0. He is admitted for further evaluation. SUBSTANCE USE HISTORY: As above. PAST MEDICAL HISTORY: As per medical consultation. FAMILY AND SOCIAL HISTORY: Patient did not provide any information. He apparently continues to reside at [facility]. He made reference of going to [place], but his thoughts were disorganized and was hard to be clear what he was indicating. PHYSICAL EXAM: As per medical consultation. MENTAL STATUS EXAM: When I saw the patient initially, he said he refused to talk to me. He would only talk to a "doctor." He that he wanted see my badge. He had a somewhat angry intense manner at that point. When I showed him by my hospital identification, he walked quietly into the room. He pulled the chair up very close to my chair. When I opened the chart in the computer, he turn the screen towards him so he could read what was on the screen. He answered a few questions. Mostly he just made statements that he was not looking for any psychiatric help that he only needed to be on "a vitamin." His affect was somewhat intense. He was more intense when he was in the [place]. When he talked to me in the room, he had a more reserved manner. His mood was dysphoric. It was difficult to assess how distressed he might be. There was no outward evidence of his responding to internal stimuli. He did make an effort to answer formal cognitive questions. He appeared to be fairly well aware of his circumstances. ASSESSMENT: This 52-year-old male is diagnosed with schizophrenia and depression. It is unclear what his current circumstances are that have led up to his hospitalization. Whether or not he has continued on his Haldol Decanoate remains to be seen. It does appear from [facility] notes that he was fairly stable on Haldol when he was being followed there. Precipitating factors are uncertain. STRENGTHS: Include that the patient appears to be relatively contained as far as any signs of hallucinations or delusions. WEAKNESSES: Includes the difficulty the patient has engaging in treatment. DIAGNOSES: 1. Schizophrenia. 2. Depression. 3. Alcohol and marijuana dependence. RECOMMENDATIONS: Patient will be admitted for comprehensive medical psychiatric and psychosocial evaluation. We will engage the patient in individual and group therapeutic activities. At this point, I will start the patient on vitamin B1 as is his request. Given his reluctance of engaging in treatment, I will give him some time to adjust to the unit. I will meet with him again later today to assess whether or not a 2nd certification needs to be completed. We will continue to focus on stabilization and discharge planning. LUIS CARLOS / LÓPEZ: [id number] / ADIEL
--- NOTE | 2018-08-30 21:54 | P.PN ---
Progress Note - Text Progress Note Date: 08/30/18 Initially called about the patient on 08/29/18 @ 8 pm. Unable to see the patient due to severe agitation. Attempted to see the patient today. The patient was seen in the hallway where he immediately refused to speak to the financial writer or undergo any physical examination. The patient stated that "I was already checked by another doc, i don't want to speak to anyone or by examined by anyone else today". The patient subsequently prohibitively walked away from the financial writer. Will attempt to see patient in am.
[2018-08-31] MEDS: NICOTINE 14MG/24HR PATCH TRANSDERM SCH (08:04)
[2018-08-31] MEDS: THIAMINE 100 MG TAB PO SCH (08:04)
--- NOTE | 2018-08-31 10:40 | PN ---
PROGRESS NOTE DATE OF SERVICE: 08/31/2018 CHIEF COMPLAINT: The patient was hopeless. He threatened to harm himself and harm others. INTERVAL HISTORY: The patient has been doing fair. He had a quiet evening last night. Mostly he would wander the unit. He pretty much talks persistently to himself. It is difficult to be clear of the things he is saying as his thoughts are a little disconnected. He would not cooperate with getting paperwork completed. It was documented he slept 5 hours last night, today he has been up. He continues in the same manner. He has been walking around the unit. He talks in a moderate voice, though some of what he says is more mumbled than clearly articulated. When I talked to him, he talked quite a bit, though it was hard to follow his train of thought. He talked about how he had been seemingly hurt by others because he would get into a relationship and then be disappointed. He then would feel that the people would be against him after that. He talked about his neighborhood. He suggested that he is safe in his neighborhood because he knows various fighting techniques. He did suggest that he has a paranoid thinking and believing that people are doing things to him such as altering his food that might be in his refrigerator. When the subject came up and I tried to talk to him about them, he would veer off to other subjects, so it was hard to get any details. He was generally cooperative when I came up and talked to him. He seemed to be comfortable in his talking, though he would not engage in any productive conversation about his current situation. When I tried talking to him about the issues of his petition, he just said that he did not know who those people were that are listed on the petition. He declines taking psychotropic medications. MENTAL STATUS: Patient was in the [place]kins. I talked with him at the nursing desk for quite a while. He talked in a somewhat rapid pace and talked continuously. His thoughts were somewhat disorganized. It was not easy to follow his train of thought. His affect was somewhat intense. He was restless. His mood was dysphoric. He did smile one time in response to a humerus comment, though nothing more than that. He appeared to have paranoid delusions. His self talk was suggestive of active hallucinations. He was oriented to his circumstances and environment. He could tell me some things about his home situation. ASSESSMENT: I will continue the current diagnosis and treatment plan. I encouraged the patient to consider taking the medication. I told him that I would order the Zyprexa at bedtime and that it would be his choice whether or not to take it. I tried to approach the patient in a manner for him to feel comfortable and possibly safe enough to trust medical decisions and get started on medications. A second certification has been completed. I attempted to review the petition and certification process with the patient, though he was not interested in discussing those issues. He declined to have contact with the person who filed a petition. Will continue to focus on stabilization and discharge planning. LUIS CARLOS / LÓPEZ: [id number] /
[2018-08-31 12:06] LABS: Hemoglobin A1C 6.2 % (4.0-6.0)
[2018-08-31] MEDS ORDERED: OLANZapine 10 MG TAB PO SCH (21:00)
[2018-09-01] MEDS: THIAMINE 100 MG TAB PO SCH (07:45)
[2018-09-01] MEDS ORDERED: OLANZapine 10 MG TAB PO PRN (12:07)
--- NOTE | 2018-09-01 18:02 | PN ---
PROGRESS NOTE DATE OF SERVICE: 09/01/2018 CHIEF COMPLAINT: The patient was hopeless. He threatened to harm himself and harm others. INTERVAL HISTORY: The patient has been doing fair. He had a quiet evening last night. He was often walking up and down the halls. He would make various comments. Sometimes he would talk with pressured speech. He might be swearing. Mostly he was talking to himself and seemed as if he was responding to some kind of internal stimuli. It is noteworthy that yesterday evening he accepted taking Zyprexa, which I had ordered. What I indicated to the patient when I saw him yesterday was that I would put an order in for the medication; it was up to him whether he wanted to take it or not, though he could see how he was doing in the day, and if he felt it was helpful, he could take it. He slept 7 hours last night. Today he has been up. He comes out in the day area. Staff note that overall he seems to be much calmer in his manner. He does not go to groups. He generally wanders the unit. He will have times when he is walking quietly and seems to have a calm manner. Then at other times staff will note that he is cursing and talking to himself in a pressured manner. This seems to go back and forth. I talked to him in the day and let him know that if he wanted to consider it, there would be a medication ordered that he could ask for on his own, namely Zyprexa 10 mg. He said he was not interested in that. He generally has been cooperative with care. I reviewed issues relating to his petition for involuntary hospitalization. I discussed the option of his signing a deferral as the best way for him to avoid having to go to a court hearing. Apparently nurses provided him with paperwork this morning regarding his petition that he ripped in two, stating he would refuse to go to court. It is noteworthy that the person who filed the petition, namely Tamera, has called the unit several times, wondering how he is doing. I again asked the patient if he was willing to let me call her so that we could possibly give him information about what concerns she might have. He declined this offer. The patient tolerates his psychotropic medication. MENTAL STATUS: The patient gave fair eye contact. He was somewhat restless. He answered questions with brief responses. His thoughts were clear. At times he would become a little tangential and would ramble about things going on at home prior to him coming into the hospital or things he might anticipate. It was somewhat difficult to follow his train of thought. His affect was a little constricted. He did have a somewhat friendly manner. His mood was dysphoric. He did seem to be somewhat distressed, though at times he could become more intensely distressed. When seen on the unit, he continues to respond to internal stimuli. ASSESSMENT: I will continue the current diagnosis and treatment plan. I will increase the patient's Zyprexa to 20 mg at bedtime. I will continue to try to maintain a low-bermeo approach to the patient, particularly when it comes to his psychotropic medications. The patient has possibly shown some improvement with just his one dose of Zyprexa. Hopefully we will see more progress. We will continue to focus on stabilization and discharge planning. LUIS CARLOS / LÓPEZ: [id number] /
[2018-09-01] MEDS: OLANZapine 10 MG TAB PO SCH (20:51)
--- NOTE | 2018-09-02 08:00 | PN ---
PROGRESS NOTE DATE OF SERVICE: 09/02/2018. CHIEF COMPLAINT: The patient was hopeless. He threatened to harm himself and harm others. INTERVAL HISTORY: The interval history patient has been doing better. He had a quiet evening last night. He tends to wander about the unit. He had some ups and downs where he would have periods of being quiet and calm and then periods where he may start talking to himself with some swearing and anger. He took 10 mg of Zyprexa last night, though I had increased the dose to 20 mg. He slept 7 hours. Today he is up. He has been wandering about the unit. He has a calm manner. He talked about how when he gets home he needs to stay away from alcohol which has been a problem for him. He talked about some other plans he had, it was difficult to follow the conversation. He kept making comments about "I have to go somewhere." Was not clear what the reference was. He said that overall things seem to be better for him and he has a better outlook. He tolerates his psychotropic medication. MENTAL STATUS: Patient sat without restlessness. He had good eye contact. Psychomotor activity was a little slowed. He answered questions with brief responses. At times his thoughts were somewhat disconnected and it was hard to follow his train of thought. At other times, he answered questions appropriately. His affect was a little constricted though not significantly so. He smiled some. His mood was quiet, though not down or depressed. He did not appear to be significantly distressed in any way. ASSESSMENT: I will continue the current diagnosis and treatment plan. I will continue psychotropic medications the same. Again, I have taken a low profile with the patient in regards to medication issues in an effort to have him get more engaged in the treatment. He does seem to be showing response to his medication. He understands that there is a p.r.n. medication available. We will continue to focus on stabilization and discharge planning. MMJAL / IJN: [id number] /
[2018-09-02] MEDS: THIAMINE 100 MG TAB PO SCH (08:20)
[2018-09-02] MEDS: OLANZapine 10 MG TAB PO SCH (20:34)
[2018-09-03] MEDS: THIAMINE 100 MG TAB PO SCH (08:34)
--- NOTE | 2018-09-03 13:24 | P.PN ---
Progress Note - Text Progress Note Date: 09/03/18 Interval History: Patient is a 52-year-old male who was approached and refused to speak with me today stating that he wanted to get out of the hospital Mental Status: Patient refused to speak with me or come to the interview room Assessment: Patient was noted to be pacing and talking to himself in the halls, he was prescribed Zyprexa 20 mg at bedtime and has only been taking 10 mg of it stating that he only wants one pill. Patient is not attending groups or activities. Plan: Patient continues to be offered Zyprexa 20 mg he has been taking 10 mg of it at bedtime stating that he only wants one pill. Patient refused to speak with me today and continues to require hospitalization to target his psychotic symptoms.
[2018-09-03] MEDS: OLANZapine 10 MG TAB PO SCH (20:39)
[2018-09-04] MEDS: THIAMINE 100 MG TAB PO SCH (08:07)
--- NOTE | 2018-09-04 11:13 | P.PN ---
Progress Note - Text Interval history: The patient is found in the hallway ambulating. He refuses to speak with me and states numerous times loudly "I don't want to talk". We discussed his case during treatment team meeting. He does have a history of schizophrenia and substance use. He was started on Zyprexa after being evaluated by Dr. Zamora. I was informed by the [facility] mental health liaison he had been on Haldol Decanoate in the past his most recent injection was January. It appears he was not hospitalized during the time he was on the Mayur dol decanoate injection. In reviewing progress notes it seems that he refuses to speak with Dr. Leiva as well yesterday. Mental status exam: The patient is a thin -Iranian male appearing his stated age. He is dressed in hospital gowns. Again he is observed ambulating in the hallway. As he walked by me he stated loudly "I don't want to talk". Efforts were made to have him understand why I wanted to speak with him but he still refused the interaction. Affect was irritable his speech was loud. He has a disheveled appearance. Insight and judgment are impaired. He has a known history of schizophrenia and I would assume he is experiencing symptoms of psychosis still. Plan: Continued symptoms of psychosis with agitation, he has prescribed Zyprexa. The patient has a deferral conference scheduled today. We will look for the result of that conference. Once I have an opportunity to speak with the patient we will consider transitioning back to Haldol and using the decanoate version of the medication. Vital signs reviewed. We will monitor the patient for safety and encourage appropriate participation in the milieu. Reality orientation will be provided when possible.
[2018-09-04] MEDS: OLANZapine 10 MG TAB PO SCH (20:44)
[2018-09-05] MEDS: THIAMINE 100 MG TAB PO SCH (08:18)
[2018-09-05] MEDS ORDERED: HALOPERIDOL LACTATE 5 MG/ML 1 ML VIAL IM PRN (11:34)
--- NOTE | 2018-09-05 11:39 | P.PN ---
Progress Note - Text Interval history: The patient's was initially found in his room. He refused to speak in an interview room at that time. He was quite agitated he profusely use profanity and we were unable to discuss his treatment plan. The session was terminated due to his level of agitation. Later in the morning he approached me in the hallway and was willing to speak in the [facility]. Again the patient was agitated. His thought process is disorganized. He verbalized paranoid and persecutory thinking. He refuses to comply with any psychotropic medication he states. He did not defer when he met with his erisa attorney. His court date is scheduled for the end of the month. It appears that he is taking a portion of the prescribed Zyprexa at bedtime. Again we have a history that he has been successful in the past with Haldol decanoate Depo injections. Mental status exam: The patient is an -Samoan male appearing older than his stated age. He is dressed in hospital gowns. He is thin. He is easily agitated he becomes loud in speech and has to be redirected. He will follow direction sometimes. He spontaneously describes paranoid and persecutory thinking. Numerous times he loudly demands to be discharged from the hospital. Insight and judgment are poor. He indicates there is no reason for him to be in the hospital. He does demonstrate some psychomotor agitation while talking. He denies having any suicidal or homicidal thoughts. He denies having any symptoms. Symptoms of psychosis are evident in observing him during our interaction. Plan: Schizophrenia with ongoing acute psychosis, we will discontinue the Zyprexa and off her Haldol orally at bedtime and change the when necessary medication to Haldol. At this point our plan will be to obtain a treatment order and utilize Haldol decanoate if the order is granted. He has not been participating in the milieu. He is encouraged to do so appropriately. Efforts to provide reality orientation are made. Vital signs reviewed.
[2018-09-05] MEDS: HALOPERIDOL 5 MG TAB PO SCH (21:34)
[2018-09-06] MEDS: THIAMINE 100 MG TAB PO SCH (07:33)
--- NOTE | 2018-09-06 16:04 | P.PN ---
Progress Note - Text Progress Note Date: 09/06/18 Interval History: Patient is a 52-year-old male is being seen in coverage. Patient was approached he was in his room and refused to turn around and speak with me and refused to leave his room to come and speak with me. Patient stated he has nothing to say if he is not being discharged. Mental Status: Patient is dressed in a hospital gown, was looking out the window in his room and refused to turn around and come to the interview room with me. Patient states if he is not being discharged he has nothing to say to me Assessment: Patient continues to pace the halls at times, is not attending groups or activities, and refused his Haldol last evening. Patient refused to leave his room and speak with me unless I was discharging Plan: Patient will continue on the current medications, continue to encourage the patient to take medication. Patient continues to require hospitalization to stabilize his psychotic symptoms.
[2018-09-06] MEDS: HALOPERIDOL 5 MG TAB PO SCH (20:57)
[2018-09-07] MEDS: THIAMINE 100 MG TAB PO SCH (09:07)
--- NOTE | 2018-09-07 09:27 | P.PN ---
Progress Note - Text Interval history: The patient is found in his room he refuses to speak to me in an interview room. He states his mood is all right. He indicates he ate breakfast this morning. He feels that he slept last night. Staff recorded he slept 6 hours. He continues to refuse psychotropic medication. He states "if I take fucking psychiatric medicine I am may lose it and break some people's fucking bones". Mental status exam: The patient is a thin -Finnish male lying in bed. He makes brief eye contact. He is dressed in hospital gowns. He participates minimally. He remains calm with simple distracting questions but becomes verbally agitated when discussing reasons for hospitalization or medication management. He then becomes louder and uses profanity. He denies having any symptoms as I go through a psychiatric review of symptoms. Insight and judgment remain poor. He demonstrated no physical aggressiveness as he remained lying in bed. Affect is bland other than when he becomes agitated as noted. He was oriented to being in the hospital he incorrectly names the day of the week is rather than Monday. He did begin to describe some tangential thoughts and loose associations spontaneously. Plan: Schizophrenia ongoing acute psychosis with agitation, the patient will continue being off of the Haldol he is not complying with medication at this time. We are awaiting a court date to attempt to obtain a treatment order. The patient remains acutely psychotic and requires continued psychiatric hospit alization. Vital signs reviewed. We will continue monitor him for safety. We will continue attempting to provide reality orientation.
[2018-09-07] MEDS: HALOPERIDOL 5 MG TAB PO SCH (21:47)
[2018-09-08] MEDS: THIAMINE 100 MG TAB PO SCH ×2 (08:03→08:05)
--- NOTE | 2018-09-08 10:06 | P.PN ---
Progress Note - Text Interval history: The patient is found in his room he follows me to an interview room. He reports that his mood is frustrated. He repetitively ask when he can be discharged. We discussed that we have to wait for a court hearing. He has no insight as to why he was brought in by police oriented a court hearing. Instead he feels persecuted by police and others in the community. He reports sleeping at night appetite stable he is not attending groups. Mental status exam: The patient is an alert -Marshallese male appearing olde r than his stated age. He has appropriate eye contact. He has constant speech that is mildly pressured. He is verbose but somewhat redirectable. Today he demonstrated no verbal agitation during this session. He continues to have acute symptoms of psychosis. His thought process remained disorganized during the session insight and judgment are poor. He continues to refuse psychotropic medication. He demonstrates no physical aggressiveness during the session he demonstrates no involuntary repetitive movements. Plan: The patient continues to demonstrate acute symptoms of psychosis with ag itation at times. He is refusing psychotropic medication. We are awaiting his court hearing to obtain an order for treatment. Vital signs reviewed. We will continue to provide reality orientation when possible. We will continue to monitor for safety.
[2018-09-08] MEDS: HALOPERIDOL 5 MG TAB PO SCH (19:52)
[2018-09-09] MEDS: THIAMINE 100 MG TAB PO SCH (09:23)
--- NOTE | 2018-09-09 13:25 | P.PN ---
Progress Note - Text Interval history: The patient's found in his room. He is lying in bed. He refuses to speak with me in an interview room. He answers only a few questions. He continues to refuse psychotropic medication. Mental status exam: The patient is an -British male found lying in bed. He makes no eye contact with me this morning. He provides brief answers to only a few questions. He continues to refuse his medication insight and judgment are poor. He is observed later in the day ambulating and holding a conversation with himself suggesting auditory hallucinations. With previous interactions he has demonstrated tangential thinking and some affect lability. Plan: The patient is refusing the psychotropic medication. He has poor insight into the reasons for this admission. We are awaiting his hearing to obtain a treatment order. We will provide reality orientation when possible. We will continue monitoring him for safety. Vital signs reviewed.
[2018-09-09] MEDS: HALOPERIDOL 5 MG TAB PO SCH (20:44)
[2018-09-10] MEDS: THIAMINE 100 MG TAB PO SCH (09:08)
--- NOTE | 2018-09-10 10:27 | P.PN ---
Progress Note - Text Interval history: The patient is found in his room again he is lying in bed he prefers not to go to an interview room. He states his mood is fine he just wants to know when his court date is so he can get out of here. His court date unfortunately isn't scheduled until September 26. He continues to refuse the Haldol. He is not amenable to taking any antipsychotic medication when offered alternatives. He indicates he sleeping at night staff report he slept 5 hours. He is often in bed throughout the day however. He is observed ambulating without difficulty in the hallway this morning. We spontaneous speech she continues to describe disorganized delusional thoughts. Mental status exam: The patient is an Afro-Macanese male found lying in bed. He makes brief eye contact. He provides brief answers to questions asked. He indicates his moods fine he demands to be discharged. He has no insight as to why he was brought to the hospital. He does demonstrate some spontaneous speech and when he does he begins to describe paranoid persecutory thoughts. He demonstrates a disorganized thought process with spontaneous speech. He reports no suicidal or homicidal ideation. Insight is poor and judgment is subsequently poor. He demonstrates no physical aggressiveness during our interaction. He demonstrates no involuntary repetitive movements. Plan: Ongoing symptoms of psychosis as part of his schizophrenia, we will continue to offer Haldol which we believe he was stabilized with in the past. Again he refuses all psychotropic medications including any alternatives to Haldol. We are awaiting his hearing to obtain a treatment order. Vital signs reviewed. We continue to provide reality orientation when possible. He is encouraged to participate in the milieu. Continue monitoring him for safety.
[2018-09-10] MEDS: HALOPERIDOL 5 MG TAB PO SCH (20:10)
[2018-09-11] MEDS: THIAMINE 100 MG TAB PO SCH (08:49)
--- NOTE | 2018-09-11 09:25 | P.PN ---
Progress Note - Text Interval history: The patient is found in his room he follows me to the [facility] to speak. He indicates that he wants to be released from the hospital. He continues to feel that he does not need psychotropic medication. He doesn't believe that anybody could've petitioned him as his mother is in [place]. He states that he threw away his court papers and does not wish to have another copy of them. He continues to isolate in his room other than walking in the hallways. He has not been attending groups. He continues to spontaneously verbalize a delusional thought content. Mental status exam: The patient is alert he is a disheveled appearance she is dressed in his own clothing. Eye contact is adequate. Speech is fluent spontaneous he is verbose and speaks almost the entire session. He describes past events that are not relevant to her current conversation. He describes paranoid persecutory concerns. His thought process is tangential at times and there are some loose associations. He demonstrates no verbal or physical aggressiveness. He maintains a bland affect throughout the interaction today. He demonstrated no repetitive involuntary movements. Insight and judgment are impaired. Plan: Ongoing acute psychosis, the patient is being offered Haldol he is refusing any psychotropic medication. He is not willing to consider Haldol or an alternative to Haldol. He does not have a court hearing scheduled until September 26. We are monitoring him for safety. He refuses to participate in groups. Reality orientation is provided when possible.
[2018-09-11] MEDS: HALOPERIDOL 5 MG TAB PO SCH (20:59)
[2018-09-12] MEDS: THIAMINE 100 MG TAB PO SCH (08:30)
--- NOTE | 2018-09-12 11:01 | P.PN ---
Progress Note - Text Interval history: The patient is found in the hallway he follows me to an interview room. He reports his mood is "alright". He states he is just been thinking about getting out of the hospital. He spontaneously describes having great wealth. 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 He has travel plans of going overseas. We attempted to discuss the potential outcomes of the court hearing. He was not able to tolerate the conversation well and demonstrated no improved insight. Mental status exam: The patient is an -Omani male appearing older than his stated age. He is dressed in hospital gowns. In the hallway he is observed ambulating and talking to himself quietly. During our session he spontaneously describes grandiose and paranoid delusional thoughts. His thought process is not well organized and he demonstrates tangential thinking loose associations. Overall his level of agitation has decreased. He is no longer using profanity during our sessions. He does get irritable when discussing the need for hospitalization. He gets irritable whenever I suggest we consider a medication. Insight and judgment are impaired. He demonstrates no abnormal involuntary movements. He is reporting no thoughts of harming himself or others. Plan: The patient continues to have acute psychosis due to his schizophrenia. We will continue to offer the Haldol although he is refusing. He has not opened any alternatives in terms of antipsychotic medication. His court date may be getting moved to this Monday. We will monitor him for safety we will encourage his participation in the milieu even though he refuses.
[2018-09-12] MEDS: HALOPERIDOL 5 MG TAB PO SCH (22:59)
[2018-09-13] MEDS: THIAMINE 100 MG TAB PO SCH (10:07)
--- NOTE | 2018-09-13 14:52 | P.PN ---
Progress Note - Text Progress Note Date: 09/13/18 Interval History: Patient is a 52-year-old male is being seen in coverage for Dr. Martinez. Patient brought his paperwork in regarding the hearing tomorrow morning. Patient and I reviewed that he was admitted on an involuntary status did not defer and his court hearing is scheduled now for tomorrow morning at 8:30. Patient stated that he will appear in court. Patient stated he hasn't been taking his medications and wanted to know why he needed to take medication. Patient refused to answer any questions about whether he was he having any symptomatology at all at this time. Mental Status: Appearance/Attitude: Patient is neatly dressed, makes eye contact at times quite intensely and is cooperative. Behavior: Patient does not exhibit any psychomotor retardation or agitation during the interview patient is noted to be pacing in the halls most of the day. Speech/Language: Patient's speech is spontaneous at times slightly garbled he is coherent Thought Process: Patient responded to questions in a goal-directed fashion Thought Content: Patient refused to answer questions about whether he was hearing voices or seeing things and refused to answer any questions about paranoid ideation and no delusions were elicited. Patient states he doesn't understand why he needs to be in the hospital or why he needs medication. Patient states that he is ready for discharge and refuses medication and refused to answer questions regarding any symptoms that he has. Suicidal/Homicidal Ideation: Patient denied current suicidal or homicidal ideation Sensorium/Cognition: Patient is alert and oriented to person, place and time Mood/Affect: Patient's mood is guarded and his affect is blunted Insight/Judgment: Patient's insight and judgment are limited Assessment: Patient brought his paperwork showing that his hearing was moved to tomorrow morning and we reviewed the involuntary process, the fact that he did not defer his hearing and that he will have a hearing tomorrow. Patient states that he will continue to refuse medication because he doesn't understand why he is in the hospital or why he needs medication. Patient refused to answer any questions regarding any symptoms he may be having. Plan: Patient continues to refuse his oral Haldol, his hearing is scheduled for tomorrow morning. Patient continues to require hospitalization to target his psychotic symptoms.
[2018-09-13] MEDS: HALOPERIDOL 5 MG TAB PO SCH (22:01)
[2018-09-14] MEDS: THIAMINE 100 MG TAB PO SCH ×2 (09:00→17:40)
--- NOTE | 2018-09-14 10:23 | P.PN ---
Progress Note - Text Interval history: The patient is found the hallway this morning prior to going to court. An attempt was made to meet with the patient but he was verbally and physically agitated. He was pacing in a [place] [place] [place] and at times became loud. He argued with staff about going to court. He continued to assert he was going to be released from the court directly and not have to return here. Due to his level of agitation I did not attempt to meet with him in an office as it was felt to be unsafe. Mental status exam: The patient is an alert -Mongolian male appearing older than his stated age. He is a disheveled appearance hygiene is fair. Eye contact was brief. As noted above he was agitated is verbally loud at times and was using profanity. He continues to demonstrate objective evidence that he is experiencing psychosis. Thought process remains disorganized. Verbalized a delusional thought content. He does not report thoughts of harming himself or others area insight and judgment poor. Plan: We are awaiting the treatment order issued by the court. Once obtained we'll initiate Haldol 5 mg at bedtime. To titrate that further. If we in fact have a treatment order and he refuses the oral Haldol dose he will receive the medication IM. We will monitor him for safety and encourage participation in the milieu appropriately. Continue to provide reality orientation when possible. Vital signs reviewed.
[2018-09-14] MEDS ORDERED: HALOPERIDOL LACTATE 5 MG/ML 1 ML VIAL IM PRN (14:28)
[2018-09-14] MEDS: HALOPERIDOL 5 MG TAB PO SCH (19:58)
[2018-09-15] MEDS: THIAMINE 100 MG TAB PO SCH (07:28)
--- NOTE | 2018-09-15 15:04 | P.PN ---
Progress Note - Text Progress Note Date: 09/15/18 Interval history: Patient [facility] in [facility] [place]. He reports he slept about 7 hours a seems last night. He is taking his psychotropic medication. He makes reference to recently going to court. Mental status exam: He is alert and cooperative with the interview. His speech is fluent, not rapid or pressured. He seems to describe his mood is doing better. He denies any hallucinations and denies any thoughts of harm to self or others. He does not show any agitation. Plan: Patient will be maintained on current psychotropic medication regimen. Continue to monitor for any medication side effects and monitor for his ongoing response to treatment. We'll continue to cover this patient through the weekend.
[2018-09-15] MEDS: HALOPERIDOL 5 MG TAB PO SCH (20:10)
[2018-09-16] MEDS: THIAMINE 100 MG TAB PO SCH (08:25)
--- NOTE | 2018-09-16 16:20 | P.PN ---
Progress Note - Text Progress Note Date: 09/16/18 Interval history: Patient seen in [facility] today. He reports that sleep and appetite are doing fine. He does not voice any adverse side effects with his medicine. He reports that he has not been attending groups. Mental status exam: He is alert and cooperative with the interview. His speech is fluent, not rapid or pressured. His mood he describes as "normal." He denies any thoughts of harm to self others. He denies any hallucinations. He does not show any agitation. Plan: Patient will be maintained on current psychotropic medication regimen. We will monitor for any medication side effects. Continue to monitor his ongoing response to treatment.
[2018-09-16] MEDS: HALOPERIDOL 5 MG TAB PO SCH (20:07)
[2018-09-17] MEDS: THIAMINE 100 MG TAB PO SCH (07:55)
--- NOTE | 2018-09-17 11:29 | P.PN ---
Progress Note - Text Interval history: The patient is found in his room he is lying in bed. He prefers not to speak in an interview room. He provides several brief one-word answers to questions asked of him. He has no questions or concerns regarding his medication. After we obtain the treatment order nursing staff report that he will only took the Haldol orally in the evening. The [facility] mental health liaison states that they have petitioned for the patient to have a public guardian. Mental status exam: The patient is a thin -[place]ian male appearing older than his stated age. He makes no eye contact today. He is lying in bed he is awake. He provides only brief answers to questions. He is reporting no suicidal or homicidal thoughts she is endorsing no auditory or visual hallucinations. He is endorsing no specific delusions. He is obviously underreporting symptoms. Insight and judgment limited. He is demonstrating no verbal or physical aggressiveness. He is dressed in hospital attire. There is a foul body odor upon entering the room. Plan: Ongoing symptoms of psychosis, the patient is now compliant with the Haldol. We will wait for the medication to demonstrate efficacy. In sitter titrating the dose if needed. Our plan is to transition him to Haldol decanoate prior to discharge. We will monitor him for safety and encourage participation in the milieu.
[2018-09-17] MEDS: HALOPERIDOL 5 MG TAB PO SCH (20:06)
[2018-09-18] MEDS: THIAMINE 100 MG TAB PO SCH (08:18)
--- NOTE | 2018-09-18 11:02 | P.PN ---
Progress Note - Text Interval history: The patient is found in the hallway he follows me to an interview room. He indicates that his mood is good. He states he slept last night. He indicates his appetite stable. He has been compliant with the Haldol ever since we obtain the treatment order. He continues to refrain from attending groups. He does continue to ambulate in the hallways. Spontaneously he states he knows he should stay away from alcohol as it has caused him problems the past and it upsets his family. Mental status exam: The patient is an -[place] male appearing his stated age. He is dressed in hospital gowns. He remains seated in the chair calmly. He reports his mood is good. Affect is brighter. He more appropriately engages in conversation. He was not argumentative and he demonstrated no agitation. He reports no suicidal or homicidal ideation intent or plan. He is reporting no auditory or visual hallucinations although he may be underreporting. There was no observed evidence of psychosis during our interaction this morning. He reports feeling safe he endorses no paranoid or persecutory thoughts. He demon strates no involuntary repetitive movements. Insight and judgment improving. Plan: Improving symptoms of psychosis, the patient will be continued as current medications. We will anticipate discharging him in the next 1-2 days depending on his clinical status. We will monitor him for safety and encourage participation in the milieu although he refuses. Vital signs reviewed.
[2018-09-18] MEDS: HALOPERIDOL 5 MG TAB PO SCH (20:07)
[2018-09-19] MEDS: THIAMINE 100 MG TAB PO SCH (08:11)
--- NOTE | 2018-09-19 11:46 | P.PN ---
Progress Note - Text Interval history: The patient is found in the hallway he follows me to an interview room. He indicates his moods fine. He continues to state that he slept last night appetite stable. He continues to abstain from groups but is observed ambulating in the hallway throughout the morning. He states he is looking forward to being discharged soon. We have learned that his apartment may be unavailable due to being sprayed for bugs. He insists that's not true and he states he needs to return to his apartment. We believe that he is being evicted from that apartment and he expresses no knowledge of that and refuses to accept that he may not return to his apartment. At that point in the conversation he became verbally agitated although he was verbally redirectable. We discussed utilizing the injectable form of Haldol as well and he did not agree. He states he will just take oral medication. Mental status exam: The patient is alert he is a thin -Andorran male appearing his stated age. He has a disheveled appearance. Hygiene adequate. He has a staring eye contact today. Speech is fluent and spontaneous. When fred tated he becomes loud. Twice he was asked to lower the tone of his voice and he did follow direction. He reports no thoughts of harming himself or others. He endorses no auditory or visual hallucinations he is reporting no specific delusions. He is mainly focused on being able to return to his own apartment and doing what he wants to do. He demonstrated no physical aggressiveness. He demonstrates no involuntary repetitive movements. Plan: The patient does not wish to receive the Haldol decanoate but he is on a court order so we will proceed with that treatment 100 mg IM today. We are doing this as his compliance with oral medications is poor. Social work will investigate whether or not he is able to return to his apartment. We will monitor him for safety and encourage participation in the milieu.
[2018-09-19 11:50] VITALS: BMI 19.4
[2018-09-19] MEDS ORDERED: HALOPERIDOL DECANOATE 100 MG/ML 1 ML VIAL IM SCH (12:00)
[2018-09-19] MEDS: HALOPERIDOL 5 MG TAB PO SCH ×2 (21:50→22:00)
[2018-09-20] MEDS: THIAMINE 100 MG TAB PO SCH (07:54)
--- NOTE | 2018-09-20 14:24 | P.PN ---
Progress Note - Text Interval history: The patient is found in bed. He reports his mood is fine. He reports having no problems with sleep or appetite. He continues to refrain from attending groups. He was given his Haldol decanoate injection yesterday although he was agitated at the time. He continued to be agitated in discussing his placement as his apartment is no longer an option. The patient did not want to comply with oral Haldol last evening but given the alternative of an injection he did comply with the oral dose. Mental status exam: The patient is alert he is lying in bed he makes brief eye contact. He provides brief answers to questions asked. He endorses no symptoms. He was not agitated during our interaction today as compared to yesterday. He likely continues to experience some residual symptoms of psychosis but is making an effort to conceal that. Insight and judgment limited. He reports all thoughts of harming himself or others. He demonstrates no involuntary repetitive movements. Affect is blunted. He is oriented to person place and day of the week. Plan: The patient will continue on the oral Haldol for a few more days before discontinuing. We need to find an acceptable placement for him upon discharge. Social work is making an effort to bring in his friend to discuss options. We will monitor the patient's agitation. Vital signs reviewed. He requires continued psychiatric hospitalization as he continues to stabilize.
[2018-09-20] MEDS: HALOPERIDOL 5 MG TAB PO SCH (20:05)
[2018-09-21] MEDS: THIAMINE 100 MG TAB PO SCH (08:32)
--- NOTE | 2018-09-21 11:53 | P.PN ---
Progress Note - Text Interval history: The patient's found in his room resting. He is verbally arousable. He indicates his mood is okay. Staff report he demonstrated no agitated behavior yesterday. Again the previous stay he was quite agitated especially about his continued stay here in the mental health unit. I was informed that his eviction hearing is on the . He is not able to return to his apartment. He has been unwilling to let his friend come up for a support meeting social work continues to arrange that meeting for discharge planning p urposes. The patient continues to abstain from groups although he is encouraged to attend. He is observed ambulating in the hallway throughout the day. Mental status exam: The patient is a thin -Slovenian male. He is lying in bed he makes brief eye contact. He initiates no conversation but provides brief answers. Again he continues to deny having all symptoms. It is likely that he continues to have at least residual symptoms of psychosis however. He denies having any suicidal or homicidal ideation intent or plan. He demonstrates no involuntary repetitive movements. During this interaction he demonstrates no verbal or physical aggressiveness. Insight and judgment is limited. Affect is blunted. Plan: Psychosis, the patient will continue on his medications as written. We w ill likely discontinue the oral dose of Haldol after the weekend if clinically appropriate. He has received the Haldol decanoate 100 mg. We will monitor for safety. We will encourage his participation in the milieu although he refuses. We will monitor that he is ambulating throughout the day. Social work will continue to attempt setting up a support meeting for discharge planning purposes. At this time the patient cannot be safely discharged to a lower level of care. Vital signs reviewed.
[2018-09-21] MEDS: HALOPERIDOL 5 MG TAB PO SCH (20:16)
[2018-09-22] MEDS: THIAMINE 100 MG TAB PO SCH (08:10)
--- NOTE | 2018-09-22 12:31 | P.PN ---
Progress Note - Text Progress Note Date: 09/22/18 Interval History: Patient is a 52-year-old male who was seen in coverage for Dr. Martinez patient reports he doesn't have any problems reports no side effects from the medication states that he hasn't been attending groups or activities. Patient reports that he sleeping and eating well. Mental Status: Appearance/Attitude: Patient is casually dressed, makes eye contact and is cooperative Behavior: Patient does not exhibit any psychomotor agitation or retardation Speech/Language: Patient's speech is of normal volume and rhythm and he is coherent, he responds to questions only Thought Process: Patient's responses are goal-directed but non-elaborative no evidence of loose association or flight of ideas Thought Content: Patient denies any auditory or visual hallucinations and no paranoid or delusional ideation is elicited. Patient is seen walking in the hallways during the day with limited interaction with other peers and is not attending groups or activities. Patient states that he is eating and sleeping well. He denies any side effects from the medication Suicidal/Homicidal Ideation: Patient denies any current suicidal or homicidal ideation Sensorium/Cognition: Patient is alert and oriented to person, place and time Mood/Affect: Patient's mood is restricted his affect is flat Insight/Judgment: Patient's insight and judgment are limited Assessment: Patient has not been agitated on the unit, he continues to not attend groups or activities but is seen walking in the hallways at times. He reports no side effects from the medication and none are noted on exam. Patient states he is eating and sleeping well. Plan: Patient will continue on his current medications, he is receiving long- acting injectable Haldol and continues on oral Haldol at this time. Patient continues to require hospitalization to further stabilize his symptoms.
[2018-09-22] MEDS: HALOPERIDOL 5 MG TAB PO SCH (20:05)
[2018-09-23] MEDS: THIAMINE 100 MG TAB PO SCH (07:52)
--- NOTE | 2018-09-23 11:52 | P.PN ---
Progress Note - Text Progress Note Date: 09/23/18 Interval History: Patient is a 52-year-old male who is being seen in coverage for Dr. Martinez he reports he has a meeting today with Tamera. Patient states that he stays in his room or walks in the hallway and is not going to groups as he doesn't like them. He states he is eating and sleeping well. Patient had no complaints of side effects from the medication. Mental Status: Appearance/Attitude: Patient is casually dressed, makes eye contact and was cooperative Behavior: Patient did not display any psychomotor agitation or retardation Speech/Language: Patient's speech is spontaneous, normal volume and rhythm, he is coherent Thought Process: Patient's responses are goal-directed with little elaboration there is no evidence of loose association or flight of ideas Thought Content: Patient denies any auditory or visual hallucinations and denies any paranoid or delusional ideation. Patient states he is eating and sleeping well, not attending groups because he doesn't like to grow to groups. Patient states he does walk the hallways during the day otherwise he stays in his room because he doesn't like to watch TV. Patient states he sleeping and eating well Suicidal/Homicidal Ideation: Patient denies any current suicidal or homicidal ideation Sensorium/Cognition: patient is alert and oriented to person, place and time Mood/Affect: patient's mood is bland his affect is slightly blunted Insight/Judgment: patient's insight and judgment are fair Assessment: patient is sleeping and eating well, spends the bulk of his day in his room or walking in the hallways not attending groups or activities. Patient states that he is not having any side effects from the medication and none are noted on exam. Patient has a family meeting today. Patient reports that he is doing well, he had no other complaints at this time Plan: patient will continue on his current medications, family meeting is being held today. Patient continues to require hospitalization.
[2018-09-23] MEDS: HALOPERIDOL 5 MG TAB PO SCH (20:08)
[2018-09-24] MEDS: THIAMINE 100 MG TAB PO SCH (08:08)
--- NOTE | 2018-09-24 09:32 | P.PN ---
Progress Note - Text Interval history: The patient is found in his room he does not wish to get up and speak in an interview room. He indicates his mood is all right. He did have a support meeting involving his friend Tamera. I reviewed the notes from social work regarding that meeting. It appears that the meeting was terminated due to his behavior. Tamera felt that the patient was not yet at baseline function. The patient indicates that he is eating. He continues to refuse participation in groups. During the day he will continue to ambulate in the hallways. It appears that he now accepts that he is not able to return to his apartment. He does not engage in a conversation as to where he will stay upon discharge however. Mental status exam: The patient is awake he keeps his back towards me he makes no eye contact. He initiates very little conversation but provides brief answers to questions. He reports having no symptoms. He states he has no suicidal or homicidal thoughts. He is endorsing no auditory or visual hallucinations. He endorses no specific delusions although he is not a reliable historian in reporting his psychosis. He demonstrates no verbal or physical aggressiveness. He lying comfortably in bed in no distress. He is oriented to person place day the week. Insight and judgment impaired. He demonstrates no tangential thinking loose associations or flight of ideas today. Those symptoms tend to become more apparent when he is more animated and demonstrating spontaneous speech. Impression/plan: Ongoing psychosis, we are allowing the Haldol time to demonstrate efficacy. In reviewing his outpatient records it seems that he was most stable while on the Haldol decanoate. In the past Haldol was augmented with Depakote but it was discontinued due to lack of compliance. We will consider an augmentation strategy however. He is encouraged to participate in the milieu. We will continue monitoring his vitals. We will discuss his disposition during treatment team meeting regarding placement and the guardianship proceeding. We will continue to monitor him for safety.
[2018-09-24] MEDS: HALOPERIDOL 5 MG TAB PO SCH (20:12)
[2018-09-25] MEDS: THIAMINE 100 MG TAB PO SCH (08:24)
--- NOTE | 2018-09-25 11:08 | P.PN ---
Progress Note - Text Interval history: The patient is found in his room he does not wish to follow me to an interview room. He indicates his mood is okay. His only concern at this point is when he will be discharged. We are awaiting the appointment of his guardian and penitentiary bed availability. Staff report that the patient continues to abstain from groups but he is observed ambulating in the hallways. He has been attending meals. He indicates his appetite is stable. He is reporting no pain or dizziness. He has no questions or concerns today other than his date of discharge. Mental status exam: The patient is a thin -[place]ib[place]ian male. He is lying in bed facing the doorway. He does have some eye contact today. He initiates no conversation but provides brief answers to questions asked. He is reporting no suicidal or homicidal ideation intent or plan. He is reporting no auditory or visual hallucinations. He may be underreporting symptoms. He is lying in bed calmly demonstrating no agitation. He demonstrates no involuntary repetitive movements. Insight and judgment slowly improving. Affect is bland. Given that he only provides brief answers his thought process appears to be any her at this time. Impressions/plan: Schizophrenia, the patient's has been given the Haldol decanoate. We will discontinue the oral dose of Haldol at this time. We will monitor him for safety and encourage participation milieu. We are awaiting appointment of a guardian and appropriate placement. At this point we are considering penitentiary placement as a transition from the mental health unit. Vital signs reviewed. We will continue to monitor him for safety. There is not a lesser level of care that is appropriate for him at this time.
[2018-09-26] MEDS: THIAMINE 100 MG TAB PO SCH (08:00)
--- NOTE | 2018-09-26 11:01 | P.PN ---
Progress Note - Text Interval history: The patient is found in his room he is lying in bed he does not wish to go to an interview room. He indicates his mood is fine. He has no spontaneous speech she answers questions briefly. Staff report that he continues to eat he ambulates in the hallway throughout the day. We've received no input from [facility] yet regarding home placement availability. Vital signs reviewed. Mental status exam: The patient is alert he is lying in bed. He makes eye contact. He is lying calmly in bed with no agitation. He demonstrates no involuntary repetitive movements. He reports no suicidal or homicidal ideation intent or plan. He is endorsing no symptoms of psychosis. Again he may be underreporting. Staff indicate there's been no agitated behavior in the last 48 hours. He continues to have poor insight into his symptoms of psychosis and that is a chronic issue. He demonstrates no current hypomanic or manic symptoms. He is oriented to person place day of the week. Plan: The patient will continue with his current treatment plan. As he clinically stabilizes we are looking for appropriate placement. At this time it appears that we'll be a halfway at least temporarily. We will monitor him for safety. We will continue to provide reality orientation when possible. He continues to require this level of care.
[2018-09-27 07:21] VITALS: RESP 16
--- NOTE | 2018-09-27 08:13 | P.PN ---
Progress Note - Text Interval history: The patient is found in his room he prefers to speak in his room and not an interview room. He indicates his mood is "alright". He indicates that he had a phone conversation with his friend Tamera. He feels that that went well. States that she told him he can stay with her temporarily until another placement is found. He indicates he is more amenable to that at this time. He states that he slept last night staff recorded he slept 6 hours. He continues to state that he is eating meals. Staff report that he continues to ambulate in the hallway during the day. He has no questions about his medication at this time. Mental status exam: The patient is a thin -Martiniquais male lying in bed. He is dressed in hospital attire and is also covered with a blanket. Eye contact is improved today. He has a little spontaneous speech but mainly answers questions asked. He reports no racing thoughts he reports no feelings of irritability. Affect is constricted to blunted. He is reporting no thoughts of harming himself or others. He reports having no auditory or visual hallucinations or any specific delusions. Again it is likely that he is underreporting as there is suspected psychosis even at baseline. He demonstrates no verbal or physical aggressiveness during our interaction he demonstrates no involuntary repetitive movements. Insight and judgment very slowly improving. Plan: The patient has been given the Haldol decanoate. His behavior over the last several days has been improved. There've been no reports of agitation. He indicates he had a phone call with his friend Tamera and he is now willing to go to her home temporarily. We will ask social work to contact Tamera to see h ow the conversation went and to see if she feels he is approximating his baseline. Vital signs reviewed. We will continue to monitor him for safety.
[2018-09-27] MEDS: THIAMINE 100 MG TAB PO SCH (08:28)
[2018-09-28] MEDS: THIAMINE 100 MG TAB PO SCH (08:13)
--- NOTE | 2018-09-28 10:06 | P.PN ---
Progress Note - Text Interval history: The patient's found in his room he prefers to be interviewed in his room. He states his mood is "tight". He denies having any symptoms as we go through a psychiatric review. He is aware that the plan is for him to at least temporarily reside with his friend Tamera. Social work notes were reviewed. Tamera was contacted and it appears that this would be an available placement option on Monday. The patient has no questions or concerns regarding medication he is received. Our plan is to continue the Haldol Decanoate. Mental status exam: The patient is alert he is lying in bed. Eye contact is improved today speech is fluent even spontaneous at times. He reports no thoughts of wanting to harm himself or others. He is endorsing no auditory or visual hallucinations or any specific delusions. He demonstrates no verbal or physical aggressiveness. He states that he is making an effort to control his anger thoughts by being focused. There is no evidence of involuntary repetitive movements. He is oriented to person place day of the week. He expresses some future oriented thinking stating that he wants to get an apartment eventually. Hygiene grooming impaired. Impression/plan: Psychosis improving, the patient was given the Haldol Decanoate injection on 09/19/2018. His symptoms of psychosis and his agitation have improved. If he demonstrates further clinical improvement/stability he may be appropriate for discharge Monday. Vital signs reviewed. He continues to refuse participation in group. We will continue to monitor him for safety..
[2018-09-29 07:13] VITALS: TEMP 97.9
[2018-09-29] MEDS: THIAMINE 100 MG TAB PO SCH (07:53)
--- NOTE | 2018-09-29 09:42 | P.PN ---
Progress Note - Text Interval history: The patient's found in his room he is lying in bed. He indicates his mood is fine. He continues to be aware that our plan is to discharge her Monday if he remains clinically stable. He continues to abstain from groups but does ambulate in the hallway. There been no observable side effects from the Haldol decanoate. He continues to eat meals. He indicates that he has showered and washed his clothes. Mental status exam: The patient is alert he is lying in bed eye contact is adequate during this interaction. Speech is fluent he does have some spontaneous speech. He indicates his mood is fine. Affect is constricted to blunted. He continues to deny having any suicidal or homicidal ideation intent or plan. He denies having any auditory or visual hallucinations or specific delusions. During our interaction he demonstrates no objective evidence of psychosis but some residual symptoms may persist. He demonstrates no verbal or physical aggressiveness. He remains oriented to person place and date of the week a month and year. Insight and judgment chronically limited but improving area Impressions/plan: The patient will continue being encouraged to attend group. He has already received a Haldol decanoate. It appears that he is clinically stabilizing. We will consider a discharge Monday to his friend's home if he continues to demonstrate stability. Vital signs reviewed. He is encouraged to continue participating in his activities of daily living.
[2018-09-30] MEDS: THIAMINE 100 MG TAB PO SCH (08:01)
[2018-10-01 07:14] VITALS: BP 95/58; PULSE 53
[2018-10-01] MEDS: THIAMINE 100 MG TAB PO SCH (08:13)
--- NOTE | 2018-10-01 09:43 | P.DS ---
Providers Date of admission: 08/29/18 18:20 Expected date of discharge: 10/01/18 Attending physician: Mahesh Martinez Consults: 08/29/18 18:35 Consult Physician Routine Consulting Provider: [facility] Consult Reason/Comments: H & P and medical care Do you want consulting provider notified?: Yes Primary care physician: Marleny Smith MD - Discharge Diagnosis(es) (1) Schizophrenia Current Visit: Yes Status: Acute Priority: High (2) Alcohol use disorder Current Visit: Yes Status: Acute Priority: High (3) Cannabis use disorder, moderate, dependence Current Visit: Yes Status: Acute (4) Cocaine use disorder Current Visit: Yes Status: Acute Priority: Medium Hospital Course: Brief summary of admission note: This patient is a 52-year-old -Fijian male who was admitted to the mental health unit on a pickup order. He has a known diagnosis of schizophrenia along with substance use diagnoses. The patient was petitioned noting that he had made suicidal statements. He demonstrated agitated behavior. It was believed he was experiencing hallucinations and was experiencing paranoid thinking. He has a history of being noncompliant with oral medications. For full details please refer to the psychiatric evaluation dated 08/30/2018. Summary of hospital course: The patient was admitted to the mental health unit on a petition and clinical certificate. A second clinical certificate was completed. There was a significant delay in scheduling the court hearing. The patient was here for well over a week waiting for a court hearing and was not taking medication. Ultimately there was a hearing we obtain a treatment order. We began Haldol 5 mg at bedtime. He transitioned to Haldol decanoate 100 mg and that was given on 09/19/2018. The patient's demonstrated acute symptoms of psychosis upon presentation and they gradually reduced while hospitalized. Initially he was loud and yelling using profane language and often he was observed talking to himself as he ambulated the hallways. Recently the symptoms have improved greatly. He has not been agitated he has been more social although he does not attend groups. He has demonstrated range of affect and has demonstrated no verbal or physical aggressiveness. He is able to return to his friend's house until he finds his own placement again. We had discussed the possibility of [facility] placement but there was no availability. He was seen by internal medicine for routine history and physical exam. Social work met with the patient several times for discharge planning purposes. Mental status exam: The patient is a thin -Fijian male appearing older than his stated age. He is pleasant and cooperative today he is dressed in his own clothing hygiene is adequate. He has some impediment his speech due to missing teeth. He states his mood is good. He spontaneously states he's trying to figure out how is going to stay out of trouble maintaining using substances. He indicates that he will go to a group each day either through [facility] or through AA/. He recognizes that his "partying days" have to be over. He reports no suicidal or homicidal ideation he reports no auditory or visual hallucinations he is endorsing no specific delusions. He may have some residual psychotic symptoms but they are much improved. He is capable of maintaining his own activities of daily living now. He demonstrates no tangential thinking loose associations or flight of ideas. He does not appear currently hypomanic or manic. Insight and judgment have improved. He demonstrates no involuntary repetitive movements. Impressions 1. Schizophrenia, alcohol use disorder, cannabis use disorder, cocaine use disorder Plan: The patient will be discharged mental health unit today. He plans to reside with his friend Tamera. Social work has spoken with her and she is agreeable to the discharge plan today. The patient received Haldol decanoate 100 mg IM on 09/19/2018 and he will be due for his next dose on 10/17/2018. He is instructed to abstain from any use of alcohol marijuana or illicit drugs as these will precipitate symptoms of psychosis and elevate his safety risk. He does not wish to participate in inpatient chemical dependency treatment. He is willing to attend outpatient care through [facility] and possibly AA/NA groups. At this time there is no imminent safety risk is appropriate for transition back to outpatient care. He is instructed to return to the hospital with any acute safety concerns. Patient Condition at Discharge: Stable Plan - Discharge Summary New Discharge Prescriptions: New Haloperidol Decanoate [Haldol D] 100 mg IM Q28D #1 vial Discontinued Haloperidol Decanoate [Haldol D] 150 mg IM QMONTH Discharge Medication List Haloperidol Decanoate [Haldol D] 100 mg IM Q28D #1 vial 10/01/18 [Rx] Follow up Appointment(s)/Referral(s): Marleny Smith MD [Primary Care Provider] - 1-2 days Activity/Diet/Wound Care/Special Instructions: Activity and diet as tolerated. No guns or weapons in the home. Refrain from alcohol and street drugs that are not prescribed by your physician. TAke all medications as prescribed, and attend all follow up appointments as scheduled. If in need of medication refills, please go to your primary care physician, or to your out patient psychiatric provider. If in crisis, please call , or go to the nearest ER.
== END 2018-10-01 12:04 | disposition home or self-care (01) | DRG 885 ==
LOC: EC 14:24 → 3MHU 18:20
PROVIDERS: ADMIT Psychiatry & Neurology Psychiatry; ATTEND Psychiatry & Neurology Psychiatry
DX: F20.9 Schizophrenia, unspecified (principal); R45.851 Suicidal ideations; F10.10 Alcohol abuse, uncomplicated; F12.20 Cannabis dependence, uncomplicated; F14.10 Cocaine abuse, uncomplicated; F17.210 Nicotine dependence, cigarettes, uncomplicated; Z91.19 Patient's noncompliance with other medical treatment and regimen; F32.9 Major depressive disorder, single episode, unspecified; Z79.899 Other long term (current) drug therapy; T43.96XA Underdosing of unspecified psychotropic drug, initial encounter; Z91.128 Patient's intentional underdosing of medication regimen for other reason; R45.1 Restlessness and agitation
CPT/HCPCS: 36415; 80053; 80061; 80306; 80320; 81003; 83036; 84443; 85025; 96372; 99285

== ENCOUNTER → 2019-01-21 | Outpatient (CLI) | payer OTHER ==
[2019-01-21 09:38] LABS: Basophils # (A) 0.1 k/uL (0-0.2); Basophils % (A) 1 %; Eosinophils # (A) 0.3 k/uL (0-0.7); Eosinophils % (A) 3 %; HCT 46.3 % (39.0-53.0); HGB 14.9 gm/dL (13.0-17.5); Lymphocytes # (A) 2.6 k/uL (1.0-4.8); Lymphocytes % (A) 25 %; MCH 28.5 pg (25.0-35.0); MCHC 32.1 g/dL (31.0-37.0); MCV 88.7 fL (80.0-100.0); Mean Platelet Volume 5.9; Monocytes # (A) 0.6 k/uL (0-1.0); Monocytes % (A) 5 %; Neutrophils # (A) 6.7 k/uL (1.3-7.7); Neutrophils % (A) 65 %; Platelet Count 267 k/uL (150-450); RBC 5.22 m/uL (4.30-5.90); RDW 13.6 % (11.5-15.5); WBC 10.4 k/uL (3.8-10.6)
[2019-01-21 15:52] LABS: Albumin 4.3 g/dL (3.80-4.90); Albumin/Globulin Ratio 1.79 (1.60-3.17); Anion Gap 6.6 mmol/L (4.00-12.00); BUN/Creat Ratio 10.83 Ratio (12.00-20.00); Calcium 9.4 mg/dL (8.7-10.3); Carbon Dioxide 28.4 mmol/L (21.6-31.8); Chol/HDL Ratio 2.82; Globulin 2.4 g/dL (1.6-3.3); LDL Cholesterol,Calculated 110.8 mg/dL (0.0-131.0); Non-African American GFR(CKD) 68.1 (60.0-200.0); Total Bilirubin 0.8 mg/dL (0.3-1.2); Total Protein 6.7 g/dL (6.2-8.2); VLDL Calculation 18.2 mg/dL (5.00-40.00)
[2019-01-21 16:50] LABS: Hemoglobin A1C 6.4 % (4.0-6.0)
[2019-01-21 17:49] LABS: Urine Alcohol Negative (Negative); Urine Barbiturate Negative (Negative); Urine Cocaine Negative (Negative); Urine Methadone Negative (Negative); Urine Opiates Negative (Negative); Urine Phencyclidine Negative (Negative)
== END | disposition home or self-care (01) ==
LOC: LABWHC1 09:02
PROVIDERS: ATTEND Family Medicine
DX: F10.10 Alcohol abuse, uncomplicated (principal); R53.83 Other fatigue; F20.9 Schizophrenia, unspecified; Z72.0 Tobacco use
CPT/HCPCS: 80061; 80053; 84443; 82607; 85025; 82306; 80306; 83036; 36415; G0103

== ENCOUNTER 2019-02-05 07:32 | Day surgery (SDC) | payer OTHER ==
[2019-02-04 10:00] VITALS: BMI 26.2
[~2019-02-05 07:32] MED LIST: LACTATED RINGERS 1,000 ML IV SCH; LIDOCAINE 1% 20 ML VIAL (10MG/ML) FOR IV START INTRADERMA PRN
[2019-02-05 08:26] VITALS: TEMP 97
[2019-02-05] MEDS ORDERED: PROPOFOL 10 MG/ML 20 ML VIAL IV ONE (08:47)
--- NOTE | 2019-02-05 09:17 | P.PCN ---
Date of Procedure: 02/05/19 Description of Procedure: BRIEF HISTORY: Patient is a 53-year-old male presenting for outpatient screening colonoscopy. No prior colonoscopies. No change in bowel habits, blood per rectum or abdominal pain. PROCEDURE PERFORMED: Colonoscopy. PREOPERATIVE DIAGNOSIS: Screening for malignant neoplasm of the colon, no prior colonoscopies. ESTIMATED BLOOD LOSS: Minimal. IV sedation per Anesthesia. PROCEDURE: After informed consent was obtained, the patient, was brought into the endoscopy unit. IV sedation was administered by Anesthesia under continuous monitoring. Digital rectal examination was normal. Initially the Olympus CF-190 flexible video colonoscope was then inserted in the rectum, gradually advanced into the cecum without any difficulty. Careful examination was performed as the scope was gradually being withdrawn. Ileocecal valve and the appendiceal orifice were visualized and appeared normal. Prep was excellent. Mucosa of the cecum, ascending colon, transverse colon, descending colon, sigmoid colon, and rectum appeared normal. Retroflexion was performed in the rectum and no lesions were seen. The patient tolerated the procedure well. IMPRESSION: Normal-appearing colon from rectum to cecum. RECOMMENDATIONS: Findings of this examination were discussed with the patient and his guardian. Okay to resume medications. Okay to resume diet. Would recommend repeat colonoscopy in 10 years or sooner if signs or symptoms which warrant further haley luation develop.
[2019-02-05 09:39] VITALS: BP 103/73; PULSE 62; RESP 15
== END 2019-02-05 10:20 | disposition home or self-care (01) ==
LOC: ORWHC2ENDO 07:32
PROVIDERS: ATTEND Internal Medicine
DX: Z12.11 Encounter for screening for malignant neoplasm of colon (principal); F20.9 Schizophrenia, unspecified; F17.210 Nicotine dependence, cigarettes, uncomplicated; Z79.899 Other long term (current) drug therapy
CPT/HCPCS: J2704; G0121

== ENCOUNTER 2020-03-21 09:51 | Emergency (ER) | payer OTHER ==
[2020-03-21 09:58] VITALS: TEMP 97.9
--- NOTE | 2020-03-21 10:24 | ED ---
Chest Pain HPI - General Chief Complaint: Chest Pain Stated Complaint: chest pain Time Seen by Provider: 03/21/20 10:04 Source: patient Mode of arrival: ambulatory Limitations: no limitations - History of Present Illness Initial Comments: Patient is a 54-year-old male, history of schizophrenia, presenting to emergency Department with complaints of chest pain for the last 3 days. Patient denies any chest pain at this time, he states it's worse when he is laying down and turns over. He states the pain is in the middle of his chest but yesterday he d id have pain referred to his left arm. He denies any injuries or falls to cause trauma to his left arm or chest area. He denies any shortness of breath. He denies any recent fever, cough, illness. He denies history of any heart disease. He denies any new medications. He denies any abdominal pain, no nausea or vomiting. Does admit to a very mild headache, 03/08. She has no further complaints at this time. Upon arrival to the ER, his vital signs are stable. - Related Data Home Medications Medication Instructions Recorded Confirmed Ergocalciferol [Vitamin D2] 50,000 unit PO MO 02/04/19 02/04/19 Haloperidol Decanoate [Haldol D] 200 mg IM Q14D 02/04/19 02/05/19 Naltrexone HCl [Revia] 50 mg PO DAILY 02/04/19 02/04/19 Allergies Allergy/AdvReac Type Severity Reaction Status Date / Time No Known Allergies Allergy Verified 03/21/20 09:55 Review of Systems ROS Statement: Those systems with pertinent positive or pertinent negative responses have been documented in the HPI. ROS Other: All systems not noted in ROS Statement are negative. EKG Findings - EKG Comments: EKG Findings:: Normal sinus rhythm, no signs of acute ischemia. Ventricular rate 91, IN of a 174, QT 344. Compared to previous EKG on 08/23/2018. Past Medical History Past Medical History: No Reported History History of Any Multi-Drug Resistant Organisms: None Reported Past Surgical History: No Surgical Hx Reported Past Anesthesia/Blood Transfusion Reactions: No Reported Reaction Past Psychological History: Schizophrenia Smoking Status: Current every day smoker Past Alcohol Use History: None Reported Past Drug Use History: None Reported, Cocaine, Marijuana - Past Family History Sister(s) Family Medical History: Cancer General Exam - General Exam Comments Initial Comments: GENERAL: Patient is well-developed and well-nourished. Patient is nontoxic and in no acute distress. HEAD: Atraumatic, normocephalic. EYES: Pupils equal round and reactive to light, extraocular movements intact, sclera anicteric, conjunctiva are normal. Eyelids were unremarkable. ENT: TMs normal, nares patent, oropharynx clear without exudates. Moist mucous membranes. NECK: Normal range of motion, supple without lymphadenopathy or JVD. LUNGS: Unlabored respirations. Breath sounds clear to auscultation bilaterally and equal. No wheezes rales or rhonchi. HEART: Regular rate and rhythm without murmurs, rubs or gallops. ABDOMEN: Soft, nontender, normoactive bowel sounds. No guarding, no rebound. No masses appreciated. : Deferred MUSCULOSKELETAL: Normal extremities with adequate strength and normal range of motion, no pitting or edema. No clubbing or cyanosis. NEUROLOGICAL: Patient is alert and oriented x 3. Motor and sensory are also intact. Cranial nerves II through XII grossly intact. Symmetrical smile. Normal speech, normal gait. PSYCH: Normal mood, normal affect. SKIN: Warm, Dry, normal turgor, no rashes or lesions noted. Limitations: no limitations Course Vital Signs 03/21/20 09:55 Temperature 97.9 F Pulse Rate 90 Respiratory 18 Rate Blood Pressure 130/96 O2 Sat by Pulse 99 Oximetry Chest Pain [facility] Patient is a 54-year-old male with history of schizophrenia, presenting for chest pain has been intermittent for 3 days. He currently has no chest pain on arrival here in the ER. His vital signs are stable. His EKG shows no acute process at this time. Chest x-ray is normal, lab work is unremarkable, troponin is negative. Patient has remained symptom-free in the ER. I discussed with patient that his symptoms are most likely related to costochondritis. Recommended anti-inflammatories for his symptoms. He can follow up with his PCP in the next few days. Patient is in agreement with this plan of care. He is stable for discharge. Return parameters were discussed with the patient and his guardian and they both verbalized understanding. Case discussed with Dr. Leos. Disposition Clinical Impression: Atypical chest pain, Costochondritis Disposition: HOME SELF-CARE Condition: Stable Instructions (If sedation given, give patient instructions): Costochondritis (ED) Additional Instructions: Please return to the Emergency Department if symptoms worsen or any other concerns. Recommend taking ibuprofen or Aleve for any discomfort. Please follow-up with your PCP in 1-3 days. Is patient prescribed a controlled substance at d/c from ED?: No Referrals: Tony Ochoa [Primary Care Provider] - 1-2 days
[2020-03-21 10:27] LABS: Basophils # (A) 0.1 k/uL (0-0.2); Basophils % (A) 1 %; Eosinophils # (A) 0.5 k/uL (0-0.7); Eosinophils % (A) 6 %; Lymphocytes # (A) 3.2 k/uL (1.0-4.8); Lymphocytes % (A) 37 %; MCH 28.3 pg (25.0-35.0); MCHC 32.6 g/dL (31.0-37.0); MCV 86.6 fL (80.0-100.0); Mean Platelet Volume 6.3; Monocytes # (A) 0.3 k/uL (0-1.0); Monocytes % (A) 4 %; Neutrophils # (A) 4.3 k/uL (1.3-7.7); Neutrophils % (A) 51 %; Platelet Count 299 k/uL (150-450); RBC 5.31 m/uL (4.30-5.90); RDW 14.5 % (11.5-15.5); WBC 8.5 k/uL (3.8-10.6)
[2020-03-21 10:36] LABS: Albumin 4.3 g/dL (3.5-5.0); Potassium 4.4 mmol/L (3.5-5.1); Total Bilirubin 0.5 mg/dL (0.2-1.3); Total Protein 7.9 g/dL (6.3-8.2)
[2020-03-21 10:38] LABS: INR 0.9 (<1.2); Partial Thromboplastin Time 22.4 sec (22.0-30.0); Prothrombin Time 10.1 sec (9.0-12.0)
--- NOTE | 2020-03-21 11:14 | XR ---
EXAMINATION TYPE: XR chest 2V DATE OF EXAM: 03/21/2020 COMPARISON: 08/23/2018 INDICATION: Chest pain TECHNIQUE: Frontal and lateral views of the chest are obtained. FINDINGS: The heart size is normal. The pulmonary vasculature is normal. The lungs are clear. IMPRESSION: 1. No acute pulmonary process.
[2020-03-21 12:02] VITALS: BP 134/85; PULSE 82; RESP 20
== END 2020-03-21 12:02 | disposition home or self-care (01) ==
LOC: EC 09:51
DX: M94.0 Chondrocostal junction syndrome [Tietze] (principal); F17.200 Nicotine dependence, unspecified, uncomplicated; Z79.899 Other long term (current) drug therapy
CPT/HCPCS: 36415; 71046; 80053; 83735; 83880; 84484; 85025; 85610; 85730; 93005; 99285

== ENCOUNTER → 2020-09-29 | Outpatient (CLI) | payer OTHER ==
--- NOTE | 2020-09-29 09:01 | CTL ---
EXAMINATION TYPE: CT Low Dose Lung DATE OF EXAM ORDERED: 09/29/2020 HISTORY: Long-term tobacco use. Lung cancer screening CT DLP: 70.[address] CTDI: 2.1 mGy Automated exposure control for dose reduction was used. SCREENING VISIT: Initial study COMPARISON: None TECHNIQUE: Low dose computed tomography scan was performed through the chest at 1 mm thick sections a nd reconstructed images in the coronal plane at [address] DIAGNOSTIC QUALITY: Satisfactory FINDINGS: LUNG NODULES: Present, detailed below: There is 4.9 x 2.3 mm nodule right mid lung axial image 149 but is along the fissure. There is 10.3 x 6.9 mm focal nodular consolidation less likely nodule right lung base laterally image 221 adjacent to some linear scarring or atelectasis inferiorly and superiorly. Suspect rounded atele ctasis or rounded scarring. This was present image 10 series [address] LUNGS: COPD: Severity: None Fibrosis: Severity: Mild scattered Lymph nodes: No greater than 1 cm Other findings: None RIGHT PLEURAL SPACE: Effusion: None Calcification: None Thickening: None Pneumothorax: None LEFT PLEURAL SPACE: Effusion: None Calcification: None Thickening: None Pneumothorax: None HEART: Heart Size: Normal Coronary calcification: None Pericardial effusion: None OTHER FINDINGS: Upper abdomen: None Bony thorax: Some bridging osteophytes in the lower thoracic spine Supraclavicular region: None Other: Slight ectasia to the proximal descending aorta just pass three-vessel origin up to 3.0 cm. IMPRESSION: No suspicious nodules. CT LUNG RAD AND CT CHEST RECOMMENDATION: Lung-Rad 1 Negative: Continue annual screening with LDCT in 12 months. S Modifier (other clinically significant findings): None
== END | disposition home or self-care (01) ==
LOC: RADCTMAIN 07:30
PROVIDERS: ATTEND Family Medicine
DX: Z12.2 Encounter for screening for malignant neoplasm of respiratory organs (principal); Z72.0 Tobacco use
CPT/HCPCS: 71271

== ENCOUNTER 2020-11-15 20:07 | Emergency (ER) | payer OTHER ==
[2020-11-15 20:12] VITALS: BP 143/96; PULSE 86; RESP 19; TEMP 98.1
--- NOTE | 2020-11-15 20:57 | ED ---
General Adult HPI - General Chief complaint: Psychiatric Symptoms Stated complaint: airflight attendants supervisor order Time Seen by Provider: 11/15/20 20:52 Source: patient Mode of arrival: ambulatory Limitations: no limitations - History of Present Illness Initial comments: Patient brought to the ED by police on a "pickup order". Patient reportedly has not been taking his psychiatric medications, and he is on a court order to do so. Patient tells me that he has been taking his medications, and he denies medication noncompliance. Patient denies having any symptoms or complaints. Patient denies alcohol or drug use. Patient denies suicidal ideations, homicidal ideations, hallucinations, trauma or injury, any pain, fever or chills, dyspnea, dizziness, cough or cold symptoms, nausea or vomiting, diarrhea, dysuria or urinary symptoms, or any other symptoms or complaints. - Related Data Home Medications Medication Instructions Recorded Confirmed Ergocalciferol [Vitamin D2] 50,000 unit PO MO 02/04/19 02/04/19 Haloperidol Decanoate [Haldol D] 200 mg IM Q14D 02/04/19 02/05/19 Naltrexone HCl [Revia] 50 mg PO DAILY 02/04/19 02/04/19 Allergies Allergy/AdvReac Type Severity Reaction Status Date / Time No Known Allergies Allergy Verified 11/15/20 20:12 Review of Systems ROS Statement: Those systems with pertinent positive or pertinent negative responses have been documented in the HPI. ROS Other: All systems not noted in ROS Statement are negative. Past Medical History Past Medical History: No Reported History History of Any Multi-Drug Resistant Organisms: None Reported Past Surgical History: No Surgical Hx Reported Past Anesthesia/Blood Transfusion Reactions: No Reported Reaction Past Psychological History: Schizophrenia Smoking Status: Never smoker Past Alcohol Use History: None Reported Past Drug Use History: Cocaine, Marijuana, None Reported - Past Family History Sister(s) Family Medical History: Cancer General Exam Limitations: no limitations General appearance: alert, in no apparent distress Head exam: Present: atraumatic, normocephalic Eye exam: Present: normal appearance, PERRL, EOMI ENT exam: Present: mucous membranes moist Neck exam: Present: other (Trachea is in midline) Respiratory exam: Present: normal lung sounds bilaterally. Absent: respiratory distress, wheezes, rales, rhonchi, stridor Cardiovascular Exam: Present: regular rate, normal rhythm, normal heart sounds, other (Normal radial pulses bilaterally) GI/Abdominal exam: Present: soft. Absent: distended, tenderness, guarding Extremities exam: Absent: tenderness, pedal edema Neurological exam: Present: alert, oriented X3, CN II-XII intact. Absent: motor sensory deficit Psychiatric exam: Present: normal affect, normal mood Skin exam: Present: warm, dry, intact, normal color Course Vital Signs 11/15/20 20:09 Temperature 98.1 F Pulse Rate 86 Respiratory 19 Rate Blood Pressure 143/96 O2 Sat by Pulse 100 Oximetry - Reevaluation(s) Reevaluation #1: 11/15/20 22:27 EPS nurse has seen and evaluated the patient in the ED. She states that the patient's medication noncompliance and pickup order were due to him not understanding that olanzapine and Zyprexa are the same thing. She states that she has confirmed with [facility] that she can discharge the patient home with his guardian if he agrees to take his dose of Zyprexa in the ED. Patient agrees with this plan. Will discharge patient home with his legal guardian once he has taken his Zyprexa dose. Disposition Clinical Impression: Encounter for psychiatric assessment, Schizophrenia Disposition: HOME SELF-CARE Condition: Stable Instructions (If sedation given, give patient instructions): Schizophrenia (ED) Additional Instructions: Return to the ER immediately should you develop thoughts of hurting yourself or others, hearing voices or seeing things, any significant pain, feeling dizzy or faint, shortness of breath, or new or worsening symptoms. Follow up closely with your primary care provider, as well as your psychiatrist. Is patient prescribed a controlled substance at d/c from ED?: No Referrals: Tony Ochoa [Primary Care Provider] - 1-2 days Time of Disposition: 22:34
[2020-11-15] MEDS ORDERED: OLANZapine 7.5 MG TAB PO ONE (22:31)
== END 2020-11-15 22:59 | disposition home or self-care (01) ==
LOC: EC 20:07
DX: Z04.6 Encounter for general psychiatric examination, requested by authority (principal); F20.9 Schizophrenia, unspecified; F12.90 Cannabis use, unspecified, uncomplicated
CPT/HCPCS: 82075; 99284

== ENCOUNTER → 2021-09-30 | Outpatient (CLI) | payer OTHER ==
--- NOTE | 2021-09-30 13:40 | CTL ---
EXAMINATION TYPE: CT Low Dose Lung DATE OF EXAM ORDERED: 09/30/2021 HISTORY: Personal history of tobacco use. Lung cancer screening CT DLP: 94.[address] CTDI: 2.6 mGy Automated exposure control for dose reduction was used. SCREENING VISIT: Follow-up. COMPARISON: CT low dose lung cancer screening 09/29/2020. TECHNIQUE: Low dose computed tomography scan was performed through the chest at 1 mm thick sections a nd reconstructed images in multiple planes at 1 mm and [address] DIAGNOSTIC QUALITY: Satisfactory FINDINGS: LUNG NODULES: Decreased size of 3.8 mm nodule along the right major fissure (series 4, image 184), pr eviously 4.9 mm. This is favored to represent intrafissural lymph node. Relatively stable 9.8 x 9.6 c m focal nodular consolidation along the right lower lobe laterally (series 4, image 245). This is fav ored to represent scarring and/or rounded atelectasis. No new or enlarging pulmonary nodules. LUNGS: COPD: Severity: None Fibrosis: Severity: Mild scattered. Lymph nodes: No greater than 1 cm. Other findings: None RIGHT PLEURAL SPACE: Effusion: None Calcification: None Thickening: None Pneumothorax: None LEFT PLEURAL SPACE: Effusion: None Calcification: None Thickening: None Pneumothorax: None HEART: Heart Size: Normal Coronary Calcification: None Pericardial Effusion: None OTHER FINDINGS: Upper abdomen: None Bony thorax: Mild degenerative changes of the lower thoracic spine with bridging anterior osteophytes . Supraclavicular region: None Other: None IMPRESSION: No suspicious nodules. No new or enlarging pulmonary nodules. CT LUNG RAD AND CT CHEST RECOMMENDATION: Lung-Rad 1 Negative: Continue annual screening with LDCT in 12 months. S Modifier (other clinically significant findings): None
== END | disposition home or self-care (01) ==
LOC: RADCTMAIN 12:50
PROVIDERS: ATTEND Family Medicine
DX: Z12.2 Encounter for screening for malignant neoplasm of respiratory organs (principal); Z87.891 Personal history of nicotine dependence
CPT/HCPCS: 71271

== ENCOUNTER → 2022-11-09 | Outpatient (CLI) | payer OTHER ==
[2022-11-09 16:32] LABS: Basophils # (A) 0.04 X 10*3/uL (0.00-0.10); Basophils % (A) 0.9 %; Eosinophils # (A) 0.15 X 10*3/uL (0.04-0.35); Eosinophils % (A) 3.2 %; HCT 44.8 % (39.6-50.0); Lymphocytes # (A) 1.85 X 10*3/uL (0.90-5.00); Lymphocytes % (A) 39.4 %; MCH 28.2 pg (27.0-32.0); MCHC 33.5 d/dL (32.0-37.0); MCV 84.4 FL (80.0-97.0); Mean Platelet Volume 9.6 FL (9.5-12.2); Monocytes # (A) 0.52 X 10*3/uL (0.20-1.00); Monocytes % (A) 11.1 %; NRBC Per 100 WBC 0 X 10*3/uL (0.00-0.01); Neutrophils # (A) 2.13 X 10*3/uL (1.80-7.70); Neutrophils % (A) 45.2 %; Platelet Count 227 X 10*3/uL (140-440); RBC 5.31 X 10*6/uL (4.40-5.60); RDW 15.5 % (11.5-14.5)
[2022-11-09 16:39] LABS: ALT 17 U/L (10-49); AST 25 U/L (14-35); Albumin 4.4 d/dL (3.8-4.9); Albumin/Globulin Ratio 1.91 Ratio (1.60-3.17); Alkaline Phosphatase 42 U/L (41-126); Blood Urea Nitrogen 9.2 mg/dL (9.0-27.0); Calcium 10.1 mg/dL (8.7-10.3); Carbon Dioxide 26.8 mmol/L (21.6-31.8); Chloride 102 mmol/L (96-109); Globulin 2.3 d/dL (1.6-3.3); Glucose 126 mg/dL (70-110); Potassium 4.2 mmol/L (3.5-5.5); Sodium 141 mmol/L (135-145); Total Bilirubin 0.8 mg/dL (0.3-1.2); Total Protein 6.7 d/dL (6.2-8.2)
== END | disposition home or self-care (01) ==
LOC: LABWHC1 11:44
PROVIDERS: ATTEND Family Medicine
DX: R63.4 Abnormal weight loss (principal)
CPT/HCPCS: 36415; 80053; 82306; 82607; 84443; 85025

== ENCOUNTER 2023-04-26 18:40 | Emergency (ER) | payer OTHER ==
--- NOTE | 2023-04-26 18:49 | ED ---
Fever HPI - General Source: patient, family, RN notes reviewed <Bebe Stephenson - Last Filed: 04/26/23 18:48> <Virgil Lopes - Last Filed: 04/26/23 20:55> - General Stated Complaint: fever headache Time Seen by Provider: 04/26/23 18:48 - History of Present Illness Initial Comments: Quick note: Patient is a 57-year-old male presented to ER with chief complaint of fever and headache. Patient states both started around 5 AM. Patient also endorses a cough and congestion. Denies any shortness of breath or chest pain. (Bebe Stephenson) 57-year-old male presenting to the ED with a chief complaint of cough. Patient states today onset of "pain all over", cough, and subjective fever denies shortness of breath. Denies chest pain. Denies changes in urination. No a bdominal pain. No changes in bowel habits. No other complaints at this time (Virgil Lopes) - Related Data Home Medications Medication Instructions Recorded Confirmed Benztropine Mesylate [Cogentin] 2 mg PO DAILY 06/02/21 06/02/21 fluPHENAZine decanoate [Prolixin 25 mg IM [id number] 06/02/21 06/02/21 Decanoate] lisinopriL [Prinivil] 10 mg PO DAILY 06/02/21 06/02/21 Previous Rx's Medication Instructions Recorded Acetaminophen Tab [Tylenol] 500 mg PO Q6H #60 tablet 04/26/23 Ibuprofen [Motrin] 600 mg PO Q8HR PRN #30 tab 04/26/23 Allergies Allergy/AdvReac Type Severity Reaction Status Date / Time No Known Allergies Allergy Verified 04/26/23 19:00 Review of Systems ROS Other: All systems not noted in ROS Statement are negative. <Bebe Stephenson - Last Filed: 04/26/23 18:48> ROS Other: All systems not noted in ROS Statement are negative. <Virgil Lopes - Last Filed: 04/26/23 20:55> ROS Statement: Those systems with pertinent positive or pertinent negative responses have been documented in the HPI. Past Medical History Past Medical History: No Reported History History of Any Multi-Drug Resistant Organisms: None Reported Past Surgical History: No Surgical Hx Reported Past Anesthesia/Blood Transfusion Reactions: No Reported Reaction Past Drug Use History: Cocaine, Marijuana, None Reported - Past Family History Sister(s) Family Medical History: Cancer <Bebe Stephenson - Last Filed: 04/26/23 18:48> General Exam <Bebe Stephenson - Last Filed: 04/26/23 18:48> General appearance: alert, in no apparent distress Eye exam: Present: normal appearance Neck exam: Present: normal inspection Respiratory exam: Present: normal lung sounds bilaterally Cardiovascular Exam: Present: regular rate, normal rhythm GI/Abdominal exam: Present: soft exam: Present: normal inspection. Absent: testicular tenderness, urethral discharge, scrotal swelling Neurological exam: Present: alert, oriented X3 Skin exam: Present: warm, dry <Virgil Lopes - Last Filed: 04/26/23 20:55> - General Exam Comments Initial Comments: Visual Physical Exam Vital signs reviewed General: Well-appearing, nontoxic, no acute distress. Head: Normocephalic, atraumatic Eyes: PERRLA, EOMI ENT: Airway patent Chest: Nonlabored breathing Skin: No visual rash, normal skin tone Neuro: Alert and oriented 3 Musculoskeletal: No gross abnormalities (Bebe Stephenson) Course Vital Signs 04/26/23 04/26/23 18:55 20:47 Temperature 98.8 F Pulse Rate 103 H 87 Respiratory 18 18 Rate Blood Pressure 116/83 128/80 O2 Sat by Pulse 95 97 Oximetry Medical Decision Making <Bebe Stephenson - Last Filed: 04/26/23 18:48> <Virgil Lopes - Last Filed: 04/26/23 20:55> - Medical Decision Making I performed the quick note portion of this chart. Electronically signed by Bebe Stephenson PA-C (Bebe Stephenson) Was pt. sent in by a medical professional or institution ([facility] Gr[facility], MACHINE UMBRELLA TIPPER, urgent care, hospital, or shelter...) When possible be specific @ -No Did you speak to anyone other than the patient for history (EMS, parent, family, police, friend...)? What history was obtained from this source @ -No Did you review nursing and triage notes (agree or disagree)? Why? @ -I reviewed and agree with nursing and triage notes Were old charts reviewed (outside hosp., previous admission, EMS record, old EKG, old radiological studies, urgent care reports/EKG's, shelter records)? Report findings @ -No old charts were reviewed Differential Diagnosis (chest pain, altered mental status, abdominal pain women, abdominal pain men, vaginal bleeding, weakness, fever, dyspnea, syncope, headache, dizziness, GI bleed, back pain, seizure, CVA, palpatations, mental health, musculoskeletal)? @ -Differential Fever: Pneumonia, viral URI, endocarditis, myocarditis, pericarditis, otitis, sinusitis, peritonsillar Abscess, retropharyngeal Abscess, epiglottitis, peritonitis, appendicitis, Josie cystitis, diverticulitis, hepatitis, colitis, UTI, PID, TOA, pyelonephritis, prostatitis, epididymitis, meningitis, encephalitis, pulmonary embolism, CVA, thyroid storm, pancreatitis, adrenal crisis, cavernous sinus thrombosis, this is not meant to be an all-inclusive list. EKG interpreted by me (3pts min.). @ -None X-rays interpreted by me (1pt min.). @ -Chest x-ray interpreted by me showing no evidence pneumonia or other acute process. CT interpreted by me (1pt min.). @ -None done U/S interpreted by me (1pt. min.). @ -None done What testing was considered but not performed or refused? (CT, X-rays, U/S, labs)? Why? @ -None What meds were considered but not given or refused? Why? @ -None Did you discuss the management of the patient with other professionals (professionals i.e. , PA, MACHINE UMBRELLA TIPPER, lab, RT, psych nurse, mental health social worker, bargeman, teacher, credit administration officer, family service caseworker)? Give summary @ -No Was smoking cessation discussed for >3mins.? @ -No Was critical care preformed (if so, how long)? @ -No Were there social determinants of health that impacted care today? How? (Homelessness, low income, unemployed, alcoholism, drug addiction, transportation, low edu. Level, literacy, decrease access to med. care, half-way, rehab)? @ -No Was there de-escalation of care discussed even if they declined (Discuss DNR or withdrawal of care, Hospice)? DNR status @ -No What co-morbidities impacted this encounter? (DM, HTN, Smoking, COPD, CAD, Cancer, CVA, ARF, Chemo, Hep., AIDS, mental health diagnosis, sleep apnea, morbid obesity)? @ -None Was patient admitted / discharged? Hospital course, mention meds given and route, prescriptions, significant lab abnormalities, going to OR and other pertinent info. @ -Discharge 57-year-old male presenting to the ED with chief complaint of myalgias, cough, congestion, fever. Serology panel shows patient influenza A positive. Chest x- ray shows no acute process. Discussed Tamiflu however patient at this time declines. Patient discharged home in stable condition with prescriptions for ibuprofen and Tylenol discussed return precautions with patient who verbalized agreement. Undiagnosed new problem with uncertain prognosis? @ -No Drug Therapy requiring intensive monitoring for toxicity (Heparin, Nitro, Insulin, Cardizem)? @ -No Were any procedures done? @ -No Diagnosis/symptom? @ -Influenza A Acute, or Chronic, or Acute on Chronic? @ -Acute Uncomplicated (without systemic symptoms) or Complicated (systemic symptoms)? @ -Uncomplicated Side effects of treatment? @ -No Exacerbation, Progression, or Severe Exacerbation? @ -No Poses a threat to life or bodily function? How? (Chest pain, [place], [place], pneumonia, PE, COPD, DKA, ARF, appy, cholecystitis, CVA, Diverticulitis, Homicidal, Suicidal, threat to staff... and all critical care pts) @ -No (Virgil Lopes) - Lab Data Lab Results 04/26/23 Range/Units 19:01 Influenza Type A (PCR) Detected A (Not Detectd) Influenza Type B (PCR) Not Detected (Not Detectd) RSV (PCR) Not Detected (Not Detectd) SARS-CoV-2 (PCR) Not Detected (Not Detectd) Disposition <Bebe Stephenson - Last Filed: 04/26/23 18:48> Is patient prescribed a controlled substance at d/c from ED?: No Time of Disposition: 20:55 <Virgil Lopes - Last Filed: 04/26/23 20:55> Clinical Impression: Influenza A Disposition: HOME SELF-CARE Condition: Good Instructions (If sedation given, give patient instructions): Influenza (ED) Additional Instructions: Please return to the Emergency Department if symptoms worsen or any other concerns. Please follow-up with your PCP. Prescriptions: Ibuprofen [Motrin] 600 mg PO Q8HR PRN #30 tab PRN Reason: Pain Acetaminophen Tab [Tylenol] 500 mg PO Q6H #60 tablet Referrals: Kendrick Saucedo MD [Primary Care Provider] - 1-2 days
[2023-04-26 19:20] VITALS: RESP 18
--- NOTE | 2023-04-26 20:11 | XR ---
EXAMINATION TYPE: XR chest 2V DATE OF EXAM: 04/26/2023 7:52 PM CLINICAL INDICATION:Male, 57 years old with history of fever; [facility] COMPARISON: None TECHNIQUE: XR chest 2V. Frontal and lateral views of the chest.. FINDINGS: Lines/Tubes/Devices: No indwelling lines are seen. Heart/mediastinum: Heart size is normal. Mediastinum appears normal. Pulmonary vascularity: Not increased, Lungs/Pleura: There is no evidence of pleural effusion, focal consolidation, or pneumothorax. Musculoskeletal: No acute osseous abnormality demonstrated in the limits of the exam. Multilevel mi ld endplate spurring in the spine. Other findings: None. IMPRESSION: No acute cardiopulmonary abnormality.
[2023-04-26] MEDS: SODIUM CHLORIDE 0.9% 1,000 ML IV STA (21:26)
[2023-04-26] MEDS: KETOROLAC 15 MG/ML 1 ML VIAL IVP STA (21:29)
[2023-04-26 23:13] VITALS: BP 125/76; PULSE 86; TEMP 98.5
== END 2023-04-26 22:57 | disposition home or self-care (01) ==
LOC: EC 18:40
DX: J10.1 Influenza due to other identified influenza virus with other respiratory manifestations (principal); F12.90 Cannabis use, unspecified, uncomplicated; F14.90 Cocaine use, unspecified, uncomplicated; Z20.822 Contact with and (suspected) exposure to COVID-19
CPT/HCPCS: 87636; 71046; 99284; 96374; 96361; J1885

== ENCOUNTER 2023-08-09 00:57 | Emergency (ER) | payer OTHER ==
[2023-08-09 01:07] VITALS: BP 122/75; PULSE 102; RESP 20; TEMP 98.2
--- NOTE | 2023-08-09 01:52 | ED ---
General Adult HPI - General Chief complaint: Psychiatric Symptoms Stated complaint: Shaking Time Seen by Provider: 08/09/23 01:12 Source: patient Mode of arrival: ambulatory Limitations: no limitations - History of Present Illness Initial comments: 57-year-old male presenting to the ED for mental health evaluation. Initially, patient complained of back pain. Denies any recent trauma or injury. Reports that this is chronic in nature. Radiates to his legs. Denies saddle anesthesia or incontinence. Denies fever or chills. Also was worried about concerns of weakness however per friend at bedside who has known the patient for 15 years, patient is walking and talking like his normal self. Patient reports that he is feeling suicidal and homicidal. Currently has no plan. No other complaints at this time. - Related Data Home Medications Medication Instructions Recorded Confirmed Benztropine Mesylate [Cogentin] 2 mg PO DAILY 06/02/21 06/02/21 fluPHENAZine decanoate [Prolixin 25 mg IM [id number] 06/02/21 06/02/21 Decanoate] lisinopriL [Prinivil] 10 mg PO DAILY 06/02/21 06/02/21 Previous Rx's Medication Instructions Recorded Acetaminophen Tab [Tylenol] 500 mg PO Q6H #60 tablet 04/26/23 Ibuprofen [Motrin] 600 mg PO Q8HR PRN #30 tab 04/26/23 Allergies Allergy/AdvReac Type Severity Reaction Status Date / Time No Known Allergies Allergy Verified 04/26/23 19:00 Review of Systems ROS Statement: Those systems with pertinent positive or pertinent negative responses have been documented in the HPI. ROS Other: All systems not noted in ROS Statement are negative. Past Medical History Past Medical History: No Reported History, Hypertension History of Any Multi-Drug Resistant Organisms: None Reported Past Surgical History: No Surgical Hx Reported Past Anesthesia/Blood Transfusion Reactions: No Reported Reaction Past Psychological History: Schizophrenia Smoking Status: Current every day smoker, Vaper Past Alcohol Use History: Abuse, Daily Past Drug Use History: Cocaine, Marijuana - Past Family History Sister(s) Family Medical History: Cancer General Exam Limitations: no limitations General appearance: alert, in no apparent distress Eye exam: Present: normal appearance Neck exam: Present: normal inspection Respiratory exam: Present: normal lung sounds bilaterally Cardiovascular Exam: Present: regular rate GI/Abdominal exam: Present: soft, normal bowel sounds. Absent: distended, tenderness, guarding, rebound, rigid Extremities exam: Present: other (Strength and sensation bilateral lower extremities equal intact. DP/PT pulses intact.) Back exam: Present: normal inspection, other (No midline spinal tenderness to palpation.) Neurological exam: Present: alert, oriented X3 Skin exam: Present: warm, dry Course Vital Signs 08/09/23 00:59 Temperature 98.2 F Pulse Rate 102 H Respiratory 20 Rate Blood Pressure 122/75 O2 Sat by Pulse 98 Oximetry Medical Decision Making - Medical Decision Making Was pt. sent in by a medical professional or institution (, PA, COUNTER SALES REPRESENTATIVE, urgent care, hospital, or skilled nursing...) When possible be specific @ -No Did you speak to anyone other than the patient for history (EMS, parent, family, police, friend...)? What history was obtained from this source @ -Spoke to the patient's friend at bedside who reports that the patient is acting like his normal self, talking with his normal self. Reports that the patient's appearance is of his normal self. Did you review nursing and triage notes (agree or disagree)? Why? @ -I reviewed and agree with nursing and triage notes Were old charts reviewed (outside hosp., previous admission, EMS record, old EKG, old radiological studies, urgent care reports/EKG's, skilled nursing records)? Report findings @ -No old charts were reviewed Differential Diagnosis (chest pain, altered mental status, abdominal pain women, abdominal pain men, vaginal bleeding, weakness, fever, dyspnea, syncope, headache, dizziness, GI bleed, back pain, seizure, CVA, palpatations, mental health, musculoskeletal)? @ -Differential Mental Health Depression, anxiety, bipolar, psychosis, schizophrenia, borderline personality, situational depression, adjustment disorder, behavioral disorder, brain tumor, malingering, substance abuse, encephalopathy, medication reaction, dementia, hypothyroidism, degenerative neurologic disorder, lupus.... This is not meant to be all-inclusive list EKG interpreted by me (3pts min.). @ -As above X-rays interpreted by me (1pt min.). @ -None done CT interpreted by me (1pt min.). @ -None done U/S interpreted by me (1pt. min.). @ -None done What testing was considered but not performed or refused? (CT, X-rays, U/S, lab s)? Why? @ -Imaging of the back was considered however at this time patient reports no new injury or trauma and states pain is chronic in nature. What meds were considered but not given or refused? Why? @ -None Did you discuss the management of the patient with other professionals (professionals i.e. , PA, COUNTER SALES REPRESENTATIVE, lab, RT, psych nurse, social scientist, process control programmer, teacher, air support control officer, family caseworker)? Give summary @ -No Was smoking cessation discussed for >3mins.? @ -No Was critical care preformed (if so, how long)? @ -No Were there social determinants of health that impacted care today? How? (Homelessness, low income, unemployed, alcoholism, drug addiction, transportation, low edu. Level, literacy, decrease access to med. care, [facility], rehab)? @ -No Was there de-escalation of care discussed even if they declined (Discuss DNR or withdrawal of care, Hospice)? DNR status @ -No What co-morbidities impacted this encounter? (DM, HTN, Smoking, COPD, CAD, Cancer, CVA, ARF, Chemo, Hep., AIDS, mental health diagnosis, sleep apnea, morbid obesity)? @ -None Was patient admitted / discharged? Hospital course, mention meds given and route, prescriptions, significant lab abnormalities, going to OR and other pertinent info. @ -Discharge 57-year-old male presenting to the ED with complaints of back pain which is chronic in nature however while in triage but was noted that he was homicidal and suicidal. No red flag symptoms in regards to back pain. No recent injury or trauma. Patient evaluated by EPS with plan to discharge patient with a safety plan. Patient provided analgesia in the ED and discharged home in stable condition. Undiagnosed new problem with uncertain prognosis? @ -No Drug Therapy requiring intensive monitoring for toxicity (Heparin, Nitro, Insulin, Cardizem)? @ -No Were any procedures done? @ -No Diagnosis/symptom? @ -Back pain, suicidal/homicidal ideation Acute, or Chronic, or Acute on Chronic? @ -Acute on chronic, acute Uncomplicated (without systemic symptoms) or Complicated (systemic symptoms)? @ -Uncomplicated Side effects of treatment? @ -No Exacerbation, Progression, or Severe Exacerbation? @ -No Poses a threat to life or bodily function? How? (Chest pain, [place], [place], pneumonia, PE, COPD, DKA, ARF, appy, cholecystitis, CVA, Diverticulitis, Homicidal, Suicidal, threat to staff... and all critical care pts) @ -No Disposition Clinical Impression: Back pain, Suicidal ideation Disposition: HOME SELF-CARE Condition: Good Instructions (If sedation given, give patient instructions): Chronic Back Pain (DC) Additional Instructions: Please return to the Emergency Department if symptoms worsen or any other concerns. Please follow-up with your PCP. Is patient prescribed a controlled substance at d/c from ED?: No Referrals: Kendrick Saucedo MD [Primary Care Provider] - 1-2 days Time of Disposition: 04:10
[2023-08-09] MEDS: KETOROLAC 15 MG/ML 1 ML VIAL IM STA (04:05)
[2023-08-09] MEDS: ACETAMINOPHEN TAB 500 MG TAB PO STA (04:06)
== END 2023-08-09 04:17 | disposition home or self-care (01) ==
LOC: EC 00:57 → EEVIPCON 00:57 → EC 04:17
DX: M54.9 Dorsalgia, unspecified (principal); R45.851 Suicidal ideations; F17.290 Nicotine dependence, other tobacco product, uncomplicated
CPT/HCPCS: 96372 ×2; 99284; 82075; 99283; J1885